=== PATIENT | female | born 1965 | race Caucasian/White ===

== ENCOUNTER 2017-07-30 12:02 | Inpatient (IN) | payer BC ==
[2017-07-30] MEDS ORDERED: ONDANSETRON HCL INJ/PF 4 MG/2 ML SDV IV ONE (12:19)
[2017-07-30] MEDS ORDERED: FENTANYL CITRATE INJ/PF 100 MCG/2 ML AMPUL IV ONE ×3 (12:19→18:22)
[2017-07-30] MEDS ORDERED: PIPERACILLIN/TAZOBACTAM 3.375 GM VIAL IV ONE ×2 (12:19→22:30)
--- NOTE | 2017-07-30 12:20 | ER Document Report ---
ED Medical Screen (RME) - General Chief Complaint: Abdominal Pain Stated Complaint: FEVER, SIDE PAIN Time Seen by Provider: 07/30/17 12:15 Notes: 52-year-old female PMH diverticulitis with subsequent remote sigmoid colectomy, recently treated with Cipro and Flagyl for an episode diagnosed 2 weeks ago back here today with complaints of left lower quadrant abdominal pain mostly but also diffusely that started again today. She had finished a course of antibiotics and the symptoms disappeared for almost a week before returning this morning. Her surgeon is Dr. Mendez who informed her to return if she had a fever. She did have a fever of 100.5 Fahrenheit this morning. TRAVEL OUTSIDE OF THE [place] IN LAST 30 DAYS: No - Related Data Allergies/Adverse Reactions: codeine [Codeine] Allergy (Mild, Verified 07/30/17 12:19) Nausea morphine [Morphine] Adverse Reaction (Intermediate, Verified 07/30/17 12:19) Nausea levofloxacin [From Levaquin] Adverse Reaction (Verified 07/30/17 12:19) JOINT PAIN Past Medical History - Social History Chew tobacco use (# tins/day): No Frequency of alcohol use: Rare Drug Abuse: None - Past Medical History Cardiac Medical History: Denies: Hx Coronary Artery Disease, Hx Heart Attack, Hx Hypertension Pulmonary Medical History: Denies: Hx Asthma, Hx Bronchitis, Hx COPD, Hx Pneumonia Neurological Medical History: Denies: Hx Cerebrovascular Accident, Hx Seizures Renal/ Medical History: Reports: Hx Kidney Stones. Denies: Hx Peritoneal Dialysis Malignancy Medical History: Reports: Hx Breast Cancer GI Medical History: Reports: Hx Diverticulitis, Hx Hiatal Hernia. Denies: Hx Hepatitis, Hx Ulcer Musculoskeltal Medical History: Denies Hx Arthritis Skin Medical History: Reports Hx Cellulitis Infectious Medical History: Denies: Hx Hepatitis Past Surgical History: Reports: Hx Abdominal Surgery - colectomy, Hx Bowel Surgery - colectomy, Hx Cholecystectomy, Hx Hysterectomy, Hx Mastectomy - BILAT. Denies: Hx Open Heart Surgery, Hx Pacemaker - Immunizations Immunizations up to date: Yes Hx Diphtheria, Pertussis, Tetanus Vaccination: Yes Physical Exam - Vital signs Vitals: Temp Pulse Resp BP Pulse Ox 97.9 F 87 16 127/83 H 99 07/30/17 12:08 07/30/17 12:08 07/30/17 12:08 07/30/17 12:08 07/30/17 12:08 Course - Vital Signs Vital signs: Temp Pulse Resp BP Pulse Ox 97.9 F 87 16 127/83 H 99 07/30/17 12:08 07/30/17 12:08 07/30/17 12:08 07/30/17 12:08 07/30/17 12:08
[2017-07-30 13:17] LABS: ABSOLUTE EOSINOPHILS # (AUTO) 0.1 10^3/uL (0.0-0.6); ABSOLUTE LYMPHOCYTES (AUTO) 1.8 10^3/uL (0.5-4.7); ABSOLUTE MONOCYTES (AUTO) 0.9 10^3/uL (0.1-1.4); ABSOLUTE NEUT (AUTO) 7.6 10^3/uL (1.7-8.2); APPEARANCE,URINE CLEAR; BASOPHILS % (AUTO) 0.3 % (0-2); BILIRUBIN,URINE NEGATIVE (NEGATIVE); COLOR,URINE YELLOW; EOSINOPHILS % (AUTO) 1.2 % (0-6); GLUCOSE, URINE NEGATIVE (NEGATIVE); HEMATOCRIT 43.3 % (36.0-47.0); HEMOGLOBIN 15.2 g/dL (12.0-15.5); KETONES,URINE NEGATIVE (NEGATIVE); LEUKOCYTE ESTERASE,URINE NEGATIVE (NEGATIVE); LYMPHOCYTES % (AUTO) 17.4 % (13-45); MEAN CORPUSCULAR HEMOGLOBIN 31.8 pg (27.0-33.4); MEAN CORPUSCULAR HGB CONC 35.2 g/dL (32.0-36.0); MEAN CORPUSCULAR VOLUME 90 fl (80-97); MONOCYTES % (AUTO) 8.6 % (3-13); NITRITE,URINE NEGATIVE (NEGATIVE); PLATELET COUNT 171 10^3/uL (150-450); PROTEIN,URINE NEGATIVE (NEGATIVE); RED CELL DISTRIBUTION WIDTH 13.2 % (11.5-14.0); SEGMENTED NEUTROPHILS % (AUTO) 72.5 % (42-78); TOTAL CELLS COUNTED % (AUTO) 100 %; URINE SPECIFIC GRAVITY 1.021; UROBILINOGEN,URINE NEGATIVE mg/dL (<2.0); WHITE BLOOD COUNT 10.4 10^3/uL (4.0-10.5)
[2017-07-30 13:20] LABS: ALANINE AMINOTRANSFERASE 27 U/L (9-52); ALBUMIN 4.8 g/dL (3.5-5.0); ALKALINE PHOSPHATASE 83 U/L (38-126); ANION GAP 13 (5-19); ASPARTATE AMINO TRANSFERASE 36 U/L (14-36); BILIRUBIN,DIRECT 0.5 mg/dL (0.0-0.4); BILIRUBIN,TOTAL 0.9 mg/dL (0.2-1.3); BLOOD UREA NITROGEN 9 mg/dL (7-20); CALCIUM 10.3 mg/dL (8.4-10.2); CARBON DIOXIDE 26 mmol/L (22-30); CHLORIDE 107 mmol/L (98-107); GLUCOSE 92 mg/dL (75-110); LIPASE 118.9 U/L (23-300); SODIUM 145.5 mmol/L (137-145)
--- NOTE | 2017-07-30 14:03 | ER Document Report ---
ED GI/ - General Chief Complaint: Abdominal Pain Stated Complaint: FEVER, SIDE PAIN Time Seen by Provider: 07/30/17 12:15 Notes: The patient is a 52-year-old female, past medical history previous episodes of diverticulitis with sigmoidectomy, breast cancer, presents with a few hours of worsening left lower quadrant abdominal pain. She was diagnosed with diverticulitis 2 weeks ago and finished Cipro and Flagyl. She was initially feeling better until the pain worsened this morning and it woke her up from sleep. She also had a fever of 100.[address] Patient called Dr. Mendez was told to come to the ER. She denies nausea, vomiting, diarrhea, constipation, rash, flank pain, urinary symptoms or headache. TRAVEL OUTSIDE OF THE [place] IN LAST 30 DAYS: No - Related Data Allergies/Adverse Reactions: codeine [Codeine] Allergy (Mild, Verified 07/30/17 12:19) Nausea morphine [Morphine] Adverse Reaction (Intermediate, Verified 07/30/17 12:19) Nausea levofloxacin [From Levaquin] Adverse Reaction (Verified 07/30/17 12:19) JOINT PAIN Home Medications: Lunesta, zoloft, kathy Past Medical History - General Information source: Patient - Social History Smoking Status: Never Smoker Chew tobacco use (# tins/day): No Frequency of alcohol use: Rare Drug Abuse: None Family History: Reviewed & Not Pertinent Patient has suicidal ideation: No Patient has homicidal ideation: No - Past Medical History Cardiac Medical History: Denies: Hx Coronary Artery Disease, Hx Heart Attack, Hx Hypertension Pulmonary Medical History: Denies: Hx Asthma, Hx Bronchitis, Hx COPD, Hx Pneumonia Neurological Medical History: Denies: Hx Cerebrovascular Accident, Hx Seizures Renal/ Medical History: Reports: Hx Kidney Stones. Denies: Hx Peritoneal Dialysis Malignancy Medical History: Reports: Hx Breast Cancer GI Medical History: Reports: Hx Diverticulitis, Hx Hiatal Hernia. Denies: Hx Hepatitis, Hx Ulcer Musculoskeltal Medical History: Denies Hx Arthritis Skin Medical History: Reports Hx Cellulitis Infectious Medical History: Denies: Hx Hepatitis Past Surgical History: Reports: Hx Abdominal Surgery - colectomy, Hx Bowel Surgery - colectomy, Hx Cholecystectomy, Hx Hysterectomy, Hx Mastectomy - BILAT. Denies: Hx Open Heart Surgery, Hx Pacemaker - Immunizations Immunizations up to date: Yes Hx Diphtheria, Pertussis, Tetanus Vaccination: Yes Review of Systems - Review of Systems Notes: REVIEW OF SYSTEMS: CONSTITUTIONAL: +fevers, -chills EENT: -eye pain, -difficulty swallowing, -nasal congestion CARDIOVASCULAR: -chest pain, -syncope. RESPIRATORY: -cough, -SOB GASTROINTESTINAL: +abdominal pain, -nausea, -vomiting, -diarrhea GENITOURINARY: -dysuria, -hematuria MUSCULOSKELETAL: -back pain, -neck pain SKIN: -rash or skin lesions. HEMATOLOGIC: -easy bruising or bleeding. LYMPHATIC: -swollen, enlarged glands. NEUROLOGICAL: -altered mental status or loss of consciousness, -headache, - neurologic symptoms PSYCHIATRIC: -anxiety, -depression. ALL OTHER SYSTEMS REVIEWED AND NEGATIVE. Physical Exam - Vital signs Vitals: Temp Pulse Resp BP Pulse Ox 97.9 F 87 16 127/83 H 99 07/30/17 12:08 07/30/17 12:08 07/30/17 12:08 07/30/17 12:08 07/30/17 12:08 - Notes Notes: PHYSICAL EXAMINATION: GENERAL: Uncomfortable. HEAD: Atraumatic, normocephalic. EYES: Pupils equal round and reactive to light, extraocular movements intact, sclera anicteric, conjunctiva are normal. ENT: nares patent, oropharynx clear without exudates. Moist mucous membranes. NECK: Normal range of motion, supple without lymphadenopathy LUNGS: Breath sounds clear to auscultation bilaterally and equal. No wheezes rales or rhonchi. HEART: Regular rate and rhythm without murmurs ABDOMEN: Soft, moderate LLQ tenderness, normoactive bowel sounds. +guarding, no rebound. No masses appreciated. EXTREMITIES: Normal range of motion, no pitting or edema. No cyanosis. NEUROLOGICAL: Cranial nerves grossly intact. Normal speech, normal gait. Normal sensory and motor exams. PSYCH: Normal mood, normal affect. SKIN: Warm, Dry, normal turgor, no rashes or lesions noted. Course - Re-evaluation Re-evalutation: Patient with worsening left lower quadrant abdominal pain despite finishing Cipro and Flagyl. Concern for perforation or abscess formation of her diverticulitis. CT abdomen and pelvis does not show any perforation or abscess formation, but it does show acute sigmoid diverticulitis. She failed outpatient therapy and requires admission for IV antibiotics. Spoke to Dr. Mendez and he will admit patient as Inpatient to Surgical floor. - Vital Signs Vital signs: Temp Pulse Resp BP Pulse Ox 97.9 F 87 16 127/83 H 99 07/30/17 12:08 07/30/17 12:08 07/30/17 12:08 07/30/17 12:08 07/30/17 12:08 - Laboratory Result Diagrams: 07/30/17 12:50 07/30/17 12:50 Laboratory results interpreted by me: 07/30/17 12:50 Sodium 145.5 H Calcium 10.3 H Direct Bilirubin 0.5 H - Diagnostic Test Radiology reviewed: Image reviewed, Reports reviewed Radiology results interpreted by me: CT A/P: 1. Findings consistent with acute uncomplicated sigmoid diverticulitis. No abscess or perforation. 2. Right urinary obstruction. Tiny less than 2 mm distal ureteral stone causes moderate -marked hydronephrosis. Discharge - Discharge Clinical Impression: Acute diverticulitis Condition: Stable Disposition: ADMITTED INPATIENT Admitting Provider: Surgicalist Zaria Mendez Unit Admitted: Surgical Floor
--- NOTE | 2017-07-30 16:54 | PDOC H&P ---
History of Present Illness Patient complains of: Abdominal pain History of Present Illness: CHERYL MURDOCK is a 52 year old female Known history of residual diverticulosis disease as evidenced by colonoscopy 2012 Dr. Mendez history of sigmoid colectomy for diverticular disease by Dr. Osorio in early who presents to the emergency department complaining about a 2 week history of abdominal pain and change in her bowel movements, and low-grade fever. She was in [place] 2 weeks ago when the onset occurred, was seen in the emergency department, diagnosed with acute diverticulitis of the left colon, and sent home on p.o. Flagyl and ciprofloxacin. She took all of her medicines as directed, and felt better until yesterday when she developed abdominal pain worse this morning. She has had some nausea but no vomiting. He was seen in the emergency department where she had a CT scan of the abdomen and pelvis with IV and oral contrast which showed findings consistent with left colonic and sigmoid region reticulitis, pericolonic stranding, and probable contained colonic abscess secondary to perforation. He was evaluated by Dr. Mendez and advised admission. Past Medical History Cardiac Medical History: Denies: Coronary Artery Disease, Myocardial Infarction, Hypertension Pulmonary Medical History: Denies: Asthma, Bronchitis, Chronic Obstructive Pulmonary Disease (COPD), Pneumonia Neurological Medical History: Denies: Seizures Malignancy Medical History: Reports: Breast Cancer GI Medical History: Reports: Diverticulitis, Hiatal Hernia Denies: Hepatitis Musculoskeltal Medical History: Denies: Arthritis Hematology: Denies: Anemia, Sickle Cell Disease Past Surgical History Past Surgical History: Reports: Cholecystectomy, Hysterectomy, Mastectomy - BILAT, Other - Sigmoid colectomy open Dr. Osorio early : Last colonoscopy 2011 Dr. Garcia: Amputation, Pacemaker Social History Smoking Status: Never Smoker Frequency of Alcohol Use: Rare Drugs: None Hx Prescription Drug Abuse: No Family History Family History: Reviewed & Not Pertinent Parental Family History Reviewed: Yes Children Family History Reviewed: Yes Sibling(s) Family History Reviewed.: Yes Medication/Allergy Home Medications: Tamoxifen Citrate 20 mg PO DAILY 09/29/11 Venlafaxine HCl [Effexor 75 Mg Tablet] 75 mg PO DAILY 09/29/11 Cephalexin Monohydrate [Keflex 500 mg Capsule] 500 mg PO BID #20 capsule Hydrocodone Bit/Acetaminophen [Vicodin 5-500 mg Tablet] 1 - 2 tab PO ASDIR PRN # 15 tablet 03/19/12 Ciprofloxacin HCl [Cipro 500 mg Tablet] 500 mg PO BID #20 tablet 02/08/14 Metronidazole [Flagyl 250 mg Tablet] 250 mg PO Q8 #25 tablet 02/08/14 Ondansetron [Zofran Odt 4 mg Tablet] 1 - 2 tab PO Q4H PRN #15 tab.rapdis Oxycodone HCl/Acetaminophen [Percocet 5-325 mg Tablet] 1 - 2 tab PO Q4H PRN #15 tablet 02/08/14 Allergies/Adverse Reactions: codeine [Codeine] Allergy (Mild, Verified 07/30/17 12:19) Nausea morphine [Morphine] Adverse Reaction (Intermediate, Verified 07/30/17 12:19) Nausea levofloxacin [From Levaquin] Adverse Reaction (Verified 07/30/17 12:19) JOINT PAIN Review of Systems Constitutional: PRESENT: as per HPI Eyes: ABSENT: visual disturbances Ears: ABSENT: hearing changes Cardiovascular: ABSENT: chest pain, dyspnea on exertion, edema, orthropnea, palpitations Respiratory: ABSENT: cough, hemoptysis Gastrointestinal: PRESENT: as per HPI, other - Patient reports chronically loose stools; she denies constipation Genitourinary: ABSENT: dysuria, hematuria Musculoskeletal: ABSENT: joint swelling Integumentary: ABSENT: rash, wounds Physical Exam Vital Signs: Temp Pulse Resp BP Pulse Ox 97.9 F 87 16 127/83 H 99 07/30/17 12:08 07/30/17 12:08 07/30/17 12:08 07/30/17 12:08 07/30/17 12:08 Intake & Output 07/29/17 07/30/17 07/31/17 06:59 06:59 06:59 Weight 88.1 kg General appearance: PRESENT: no acute distress Head exam: PRESENT: normocephalic Eye exam: PRESENT: EOMI Ear exam: PRESENT: normal external ear exam Mouth exam: PRESENT: dry mucosa Neck exam: PRESENT: full ROM Respiratory exam: PRESENT: clear to auscultation daniel Cardiovascular exam: PRESENT: RRR Pulses: PRESENT: normal carotid pulses, normal radial pulses, normal femoral pulses GI/Abdominal exam: PRESENT: other - Tender right lower quadrant with mild guarding, no rigidity no organomegaly Rectal exam: PRESENT: deferred Extremities exam: PRESENT: full ROM Musculoskeletal exam: PRESENT: full ROM Neurological exam: PRESENT: awake, oriented to person, oriented to place, oriented to time, oriented to situation Psychiatric exam: PRESENT: appropriate affect Results Laboratory Results: 07/30/17 12:50 07/30/17 12:50 07/30/17 07/30/17 07/30/17 12:50 12:50 12:50 WBC 10.4 RBC 4.80 Hgb 15.2 Hct 43.3 MCV 90 MCH 31.8 MCHC 35.2 RDW 13.2 Plt Count 171 Seg Neutrophils % 72.5 Lymphocytes % 17.4 Monocytes % 8.6 Eosinophils % 1.2 Basophils % 0.3 Absolute Neutrophils 7.6 Absolute Lymphocytes 1.8 Absolute Monocytes 0.9 Absolute Eosinophils 0.1 Absolute Basophils 0.0 Sodium 145.5 H Potassium 4.0 Chloride 107 Carbon Dioxide 26 Anion Gap 13 BUN 9 Creatinine 0.58 Est GFR ( Amer) > 60 Est GFR (Non-Af Amer) > 60 Glucose 92 Calcium 10.3 H Total Bilirubin 0.9 AST 36 ALT 27 Alkaline Phosphatase 83 Total Protein 8.0 Albumin 4.8 Lipase 118.9 Urine Color YELLOW Urine Appearance CLEAR Urine pH 5.0 Ur Specific Cameron 1.021 Urine Protein NEGATIVE Urine Glucose (UA) NEGATIVE Urine Ketones NEGATIVE Urine Blood NEGATIVE Urine Nitrite NEGATIVE Ur Leukocyte Esterase NEGATIVE Urine WBC (Auto) 1 Urine RBC (Auto) 1 Assessment & Plan - Diagnosis (1) Acute diverticulitis of intestine Is this a current diagnosis for this admission?: Yes Plan: Patient has a history of sigmoid colectomy by Dr. Terence Osorio over 10 years ago ; details currently not available; interval colonoscopy by Dr. Mendez 2011 showing normal residual diverticular disease only, now with acute flareup of resumed left colonic diverticulitis, failed outpatient management over the last 2 weeks with persisting pain and the CT scan showing left colonic narrowing, pericolonic stranding, probable contained perforation. Patient is not septic. Recommendations: 1. Admit, IV fluids, IV antibiotics and clear liquids; no immediate indication for exploratory surgery, or drainage procedure at this time 2. Doubt patient will require reoperation at this time; she may require colonoscopy for diagnostic purposes depending upon how her clinical condition plays out. (2) History of breast cancer Is this a current diagnosis for this admission?: Yes Plan: Patient has a history of unilateral breast cancer, status post bilateral mastectomy, with contralateral prophylactic mastectomy, adjuvant chemotherapy with port placement and port removal approximately 10 years ago. No interval recurrence. - Time Time Spent: 50 to 70 Minutes Critical Time spent with patient: 15-24 minutes Medications reviewed and adjusted accordingly: Yes Anticipated discharge: Home Within: within 24 hours - Inpatient Certification Based on my medical assessment, after consideration of the patient's comorbidities, presenting symptoms, or acuity I expect that the services needed warrant INPATIENT care.: Yes I certify that my determination is in accordance with my understanding of Medicare's requirements for reasonable and necessary INPATIENT services [42 CFR 412.3e].: Yes Medical Necessity: Need For IV Fluids, Need for IV Antibiotics
--- NOTE | 2017-07-30 16:58 | RADIOLOGY REPORT (SQ) ---
EXAM DESCRIPTION: CT ABD/PELVIS WITH IV ORAL COMPLETED DATE/TIME: 07/30/2017 4:40 pm REASON FOR STUDY: diverticulitis recently; eval repeat vs abscess COMPARISON: 2014. TECHNIQUE: CT scan of the abdomen and pelvis performed with intravenous and oral contrast using luciano lázaro scanning technique with dynamic intravenous contrast injection. Images reviewed with lung, soft t issue, and bone windows. Reconstructed coronal and sagittal MPR images reviewed. Delayed images for e valuation of the urinary system also acquired. All images stored on PACS. All CT scanners at this facility use dose modulation, iterative reconstruction, and/or weight based d osing when appropriate to reduce radiation dose to as low as reasonably achievable (ALARA). [facility]: Dose Right [facility]: CareDose [facility]: Dose Right [facility]: Teradose 4D [facility]: [employer] CONTRAST TYPE AND DOSE: contrast/concentration: Isovue 370.00 mg/ml; Total Contrast Delivered: 95.0 ml; Total Saline Delivered: 59.1 ml RENAL FUNCTION: GFR > 60. RADIATION DOSE: CT Rad equipment meets quality standard of care and radiation dose reduction techniq ues were employed. CTDIvol: 13.4 - 16.9 mGy. DLP: 1687 mGy-cm.. LIMITATIONS: None. FINDINGS: LOWER CHEST: No significant findings. No nodules or infiltrates. LIVER: Diffusely fatty. SPLEEN: Normal size. No focal lesions. PANCREAS: No masses. No significant calcifications. No adjacent inflammation or peripancreatic fluid collections. Pancreatic duct not dilated. GALLBLADDER: Absent. ADRENAL GLANDS: No significant masses or asymmetry. RIGHT KIDNEY AND URETER: Moderate -marked hydronephrosis. Dilatation of the right ureter proximally. Tiny sub 2 mm calculus in the right hemipelvis appears to lie in the distal ureter. Best demonstra carlos on axial images 71 series 3 and coronal series 601, image 45. Lack of excretion into the right u reter with pooling of contrast in the dilated collecting system and slightly delayed nephrogram. LEFT KIDNEY AND URETER: No solid masses. No significant calcification. No hydronephrosis or hydrouret er. AORTA AND VESSELS: No aneurysm. No dissection. Renal arteries, SMA, celiac without stenosis. RETROPERITONEUM: No retroperitoneal adenopathy, hemorrhage or masses. BOWEL AND PERITONEAL CAVITY: Wall thickening, diverticulosis and hazy pericolonic fat stranding in th e proximal sigmoid. No regional abscess or perforation. No free air. Remaining loops of bowel look normal. APPENDIX: Normal. PELVIS: No significant masses. Normal bladder. No free fluid. ABDOMINAL WALL: No masses. No hernias. BONES: No significant or acute findings. OTHER: No other significant finding. IMPRESSION: 1. Findings consistent with acute uncomplicated sigmoid diverticulitis. No abscess or p erforation. 2. Right urinary obstruction. Tiny less than 2 mm distal ureteral stone causes moderate -marked hydronephrosis. TECHNICAL DOCUMENTATION: JOB ID: [id number] Quality ID # [id number]: Final reports with documentation of one or more dose reduction techniques (e.g., Au tomated exposure control, adjustment of the mA and/or kV according to patient size, use of iterative reconstruction technique) 2010 [employer]- All Rights Reserved Reading location - IP/workstation name: [email or web address]
[2017-07-30] MEDS ORDERED: PIPERACILLIN/TAZOBACTAM 3.375 GM VIAL IV PRN (16:59)
[2017-07-30] MEDS ORDERED: KETOROLAC TROMETHAMINE INJ/PF 30 MG/1 ML SDV IV ONE (18:21)
[2017-07-30] MEDS: RINGERS SOLUTION,LACTATED 1,000 ML IV PRN (18:57)
[2017-07-30] MEDS ORDERED: KETOROLAC TROMETHAMINE 10 MG TABLET PO PRN (23:18)
[2017-07-30] MEDS: PIPERACILLIN SODIUM/TAZOBACTAM 3.375 GM in NORMAL SALINE 100 ML IV SCH (23:32)
[2017-07-30] MEDS: KETOROLAC TROMETHAMINE INJ/PF 30 MG/1 ML SDV IV PRN (23:32)
[2017-07-31] MEDS ORDERED: PIPERACILLIN/TAZOBACTAM 3.375 GM VIAL IV ONE (05:14)
[2017-07-31] MEDS: PIPERACILLIN SODIUM/TAZOBACTAM 3.375 GM in NORMAL SALINE 100 ML IV SCH ×3 (05:35→23:08)
[2017-07-31] MEDS: KETOROLAC TROMETHAMINE INJ/PF 30 MG/1 ML SDV IV PRN ×3 (05:35→21:59)
[2017-07-31] MEDS: RINGERS SOLUTION,LACTATED 1,000 ML IV PRN (05:36)
--- NOTE | 2017-07-31 07:33 | Physician Advisory Note ---
Physician Advisor ProgressNote .: Pursuant to the plan for [facility], I have reviewed the medical record for this patient. Physician Advisor Statement: Please consider documenting, if you agree: 1. "Rt hydronephrosis due to <2mm distal ureteral stone" - & state whether likely acute or chronic (CT) 2. Clarify the suggestion of a discrepancy in the record between H&P (stating there is acute diverticulitis w/pericolonic abscess), & CT report (not mentioning this but stating Rt hydronephrosis due to distal ureteral stone). 3. "Acute hypernatremia, likely due to " [intravascular volume depletion?] 4. Medical necessity: each day, the reason(s) pt not safe for d/c to home that day. Status: Pt w/prior sigmoid colectomy due to diverticular disease, recent acute diverticulitis tx'd outpt with initial improvement & then relapse of sx/failure of outpt tx per surgeon.
--- NOTE | 2017-07-31 09:59 | PDOC PROGRESS REPORT ---
Subjective Progress Note for:: 07/31/17 Subjective:: Feels okay. Still having left lower quadrant abdominal pain but slightly improved. Patient denies any right-sided abdominal pain and denies any right flank pain. She has had kidney stones in the past and she states that her current left-sided pain is nothing like her kidney stone pains in the past. Reason For Visit: ACUTE DIVERTICULITIS WITH PERICOLONIC ABSCESS Physical Exam Vital Signs: Temp Pulse Resp BP Pulse Ox 97.8 F 69 16 97/53 L 99 07/31/17 07:02 07/31/17 07:04 07/31/17 07:02 07/31/17 07:04 07/31/17 07:02 Intake & Output 07/30/17 07/31/17 08/01/17 06:59 06:59 06:59 Intake Total 320 Output Total 300 Balance 20 Weight 89.7 kg General appearance: PRESENT: no acute distress, cooperative Respiratory exam: PRESENT: clear to auscultation daniel Cardiovascular exam: PRESENT: RRR GI/Abdominal exam: PRESENT: other - Soft, nondistended, moderate left lower quadrant abdominal tenderness without peritoneal signs. Extremities exam: PRESENT: other - No swelling and no tenderness. Results Impressions: Abdomen/Pelvis CT 07/30/17 12:15 IMPRESSION: 1. Findings consistent with acute uncomplicated sigmoid diverticulitis. No abscess or perforation. 2. Right urinary obstruction. Tiny less than 2 mm distal ureteral stone causes moderate -marked hydronephrosis. Assessment & Plan - Diagnosis (1) Acute diverticulitis of intestine Is this a current diagnosis for this admission?: Yes Plan: We will continue IV antibiotics. Patient was noted with a possible right ureteral stone on CT scan however patient is asymptomatic in regards to this stone. She has a history of right ureteral lithiasis in the past. I will have her follow-up with her urologist when she is discharged in regards to the current CT scan findings. Unfortunately we do not have a urologist on staff at our hospital for at least the next 7 days. We will keep the patient on clear liquids for today and when she has improvement of her pain and tenderness, will advance her diet.
[2017-07-31] MEDS: MORPHINE SULFATE 10 MG/ML INJ IV PRN ×2 (12:00→18:33)
[2017-07-31] MEDS: ONDANSETRON HCL INJ/PF 4 MG/2 ML SDV IV PRN ×2 (12:00→18:33)
--- NOTE | 2017-07-31 15:03 | Physician Advisory Note ---
Physician Advisor ProgressNote .: Pursuant to the plan for [facility], I have reviewed the medical record for this patient. Physician Advisor Statement: Status: Excellent clarification of pt's ongoing need for hospitalization, etc. - continues w/ LLQ pain & tenderness, not ok to advance beyond clears po yet, needs continued IV abx & IVF with close monitoring (especially given impression of possible pericolonic abscess from perforation). Failed outpt tx, w/ continued sx even after 24hrs of tx in hospital. Needed Fentanyl IV 2x yesterday for pain control, now needing prn IV morphine/Zofran added for adequate pain control today - not improving as quickly as hoped/expected. Appropriate for transition to Inpatient status. Please [facility] to [facility], if you agree: 1. "Acute diverticulitis with suspected pericolonic abscess due to intestinal perforation of sigmoid [or ___] colon, a clinical dx given continued pain & tenderness despite outpt tx" 2. "Rt hydronephrosis, [?acute or chronic, or unknown chronicity] with small distal ureteral stone, asymptomatic" 3. "Medical necessity: pt continues with acute abd pain & tenderness until ___ _, then was able to have diet advanced ..." Thanks! CK
[2017-07-31] MEDS ORDERED: MORPHINE SULFATE 10 MG/ML INJ ONE (18:21)
[2017-08-01] MEDS: HYDROMORPHONE HCL INJ/PF 2 MG/ML AMPULE IV PRN ×6 (00:33→20:59)
[2017-08-01] MEDS: PIPERACILLIN SODIUM/TAZOBACTAM 3.375 GM in NORMAL SALINE 100 ML IV SCH ×4 (05:07→23:44)
[2017-08-01] MEDS: KETOROLAC TROMETHAMINE INJ/PF 30 MG/1 ML SDV IV PRN (05:08)
[2017-08-01 07:16] LABS: ABSOLUTE EOSINOPHILS # (AUTO) 0.2 10^3/uL (0.0-0.6); ABSOLUTE LYMPHOCYTES (AUTO) 1.3 10^3/uL (0.5-4.7); ABSOLUTE MONOCYTES (AUTO) 0.4 10^3/uL (0.1-1.4); ABSOLUTE NEUT (AUTO) 1.8 10^3/uL (1.7-8.2); BASOPHILS % (AUTO) 1.2 % (0-2); EOSINOPHILS % (AUTO) 6.3 % (0-6); HEMATOCRIT 33.7 % (36.0-47.0); LYMPHOCYTES % (AUTO) 33.7 % (13-45); MEAN CORPUSCULAR HEMOGLOBIN 32.3 pg (27.0-33.4); MEAN CORPUSCULAR HGB CONC 35.8 g/dL (32.0-36.0); MEAN CORPUSCULAR VOLUME 90 fl (80-97); MONOCYTES % (AUTO) 11.2 % (3-13); PLATELET COUNT 110 10^3/uL (150-450); RED BLOOD COUNT 3.73 10^6/uL (3.72-5.28); RED CELL DISTRIBUTION WIDTH 12.9 % (11.5-14.0); SEGMENTED NEUTROPHILS % (AUTO) 47.6 % (42-78); TOTAL CELLS COUNTED % (AUTO) 100 %; WHITE BLOOD COUNT 3.8 10^3/uL (4.0-10.5)
[2017-08-01 07:57] LABS: HEMOGLOBIN 12.1 g/dL (12.0-15.5)
[2017-08-01] MEDS: ONDANSETRON HCL INJ/PF 4 MG/2 ML SDV IV PRN ×2 (08:13→16:47)
--- NOTE | 2017-08-01 09:52 | PDOC PROGRESS REPORT ---
Subjective Progress Note for:: 08/01/17 Subjective:: Pain in left lower quadrant not improved. Patient now having bloody bowel movements. Reason For Visit: ACUTE DIVERTICULITIS WITH PERICOLONIC ABSCESS Physical Exam Vital Signs: Temp Pulse Resp BP Pulse Ox 97.9 F 67 16 106/62 96 08/01/17 04:54 08/01/17 04:54 08/01/17 04:54 08/01/17 04:54 08/01/17 04:54 Intake & Output 07/31/17 08/01/17 08/02/17 06:59 06:59 06:59 Intake Total 320 440 Output Total 300 40 Balance 20 400 Weight 89.7 kg 91.1 kg General appearance: PRESENT: no acute distress, cooperative Respiratory exam: PRESENT: clear to auscultation daniel Cardiovascular exam: PRESENT: RRR GI/Abdominal exam: PRESENT: other - Soft, nondistended, focal tenderness to palpation in the left lower quadrant but without peritoneal signs Extremities exam: PRESENT: other - No swelling and no tenderness Results Laboratory Results: 08/01/17 06:20 08/01/17 06:20 WBC 3.8 L RBC 3.73 Hgb 12.1 D Hct 33.7 L MCV 90 MCH 32.3 MCHC 35.8 RDW 12.9 Plt Count 110 L Seg Neutrophils % 47.6 Lymphocytes % 33.7 Monocytes % 11.2 Eosinophils % 6.3 H Basophils % 1.2 Absolute Neutrophils 1.8 Absolute Lymphocytes 1.3 Absolute Monocytes 0.4 Absolute Eosinophils 0.2 Absolute Basophils 0.0 Impressions: Abdomen/Pelvis CT 07/30/17 12:15 IMPRESSION: 1. Findings consistent with acute uncomplicated sigmoid diverticulitis. No abscess or perforation. 2. Right urinary obstruction. Tiny less than 2 mm distal ureteral stone causes moderate -marked hydronephrosis. Assessment & Plan - Diagnosis (1) Acute diverticulitis of intestine Is this a current diagnosis for this admission?: Yes Plan: Not responding with current measures. Now with blood per rectum. Will make the patient n.p.o. to place her at bowel rest. Will change antibiotics to Levaquin and Flagyl. I have discussed with the patient the option of surgery versus continued conservative management with the above changes. Since patient does not have peritoneal signs and her vital signs are stable I think we can try bowel rest and change of antibiotics. Reluctant to do an endoscopic procedure in the face of diverticulitis. However if her bleeding worsens will plan a flexible sigmoidoscopy.
[2017-08-01] MEDS ORDERED: DEXTROSE 5%-1/2 NORMAL SALINE 1,000 ML with POTASSIUM CHLORIDE 30 MEQ IV PRN ×2 (09:55)
--- NOTE | 2017-08-01 10:23 | PDOC PROGRESS REPORT ---
Subjective Reason For Visit: ACUTE DIVERTICULITIS WITH PERICOLONIC ABSCESS Physical Exam Vital Signs: Temp Pulse Resp BP Pulse Ox 98.0 F 62 17 115/66 96 08/01/17 08:28 08/01/17 08:28 08/01/17 08:28 08/01/17 08:28 08/01/17 04:54 Intake & Output 07/31/17 08/01/17 08/02/17 06:59 06:59 06:59 Intake Total 320 440 Output Total 300 40 100 Balance 20 400 -100 Weight 89.7 kg 91.1 kg Results Laboratory Results: 08/01/17 06:20 08/01/17 06:20 WBC 3.8 L RBC 3.73 Hgb 12.1 D Hct 33.7 L MCV 90 MCH 32.3 MCHC 35.8 RDW 12.9 Plt Count 110 L Seg Neutrophils % 47.6 Lymphocytes % 33.7 Monocytes % 11.2 Eosinophils % 6.3 H Basophils % 1.2 Absolute Neutrophils 1.8 Absolute Lymphocytes 1.3 Absolute Monocytes 0.4 Absolute Eosinophils 0.2 Absolute Basophils 0.0 Impressions: Abdomen/Pelvis CT 07/30/17 12:15 IMPRESSION: 1. Findings consistent with acute uncomplicated sigmoid diverticulitis. No abscess or perforation. 2. Right urinary obstruction. Tiny less than 2 mm distal ureteral stone causes moderate -marked hydronephrosis. Assessment & Plan - Diagnosis (1) Acute diverticulitis of intestine Is this a current diagnosis for this admission?: Yes Plan: Patient with significant reaction to Levaquin in the past. Therefore will continue with her current antibiotic and will add Flagyl.
[2017-08-01] MEDS ORDERED: POTASSI CL 30 MEQ/D5-1/2NS 1L 1000 ML IV PRN (11:32)
[2017-08-01] MEDS: METRONIDAZOLE 500 MG/NS RTU 100 ML IV SCH ×2 (13:02→18:04)
[2017-08-01] MEDS: POTASSI CL 30 MEQ/D5-1/2NS 1L 1000 ML IV PRN (16:48)
[2017-08-01] MEDS ORDERED: PROMETHAZINE HCL INJ 25 MG/1 ML VIAL IV ONE (22:00)
[2017-08-02] MEDS: METRONIDAZOLE 500 MG/NS RTU 100 ML IV SCH ×4 (00:34→17:51)
[2017-08-02] MEDS: PIPERACILLIN SODIUM/TAZOBACTAM 3.375 GM in NORMAL SALINE 100 ML IV SCH ×4 (05:28→23:16)
[2017-08-02] MEDS: POTASSI CL 30 MEQ/D5-1/2NS 1L 1000 ML IV PRN ×2 (05:29→23:17)
[2017-08-02] MEDS: KETOROLAC TROMETHAMINE INJ/PF 30 MG/1 ML SDV IV PRN (05:29)
[2017-08-02] MEDS: ONDANSETRON HCL INJ/PF 4 MG/2 ML SDV IV PRN ×3 (05:29→17:51)
[2017-08-02 07:04] LABS: ABSOLUTE EOSINOPHILS # (AUTO) 0.2 10^3/uL (0.0-0.6); ABSOLUTE LYMPHOCYTES (AUTO) 0.9 10^3/uL (0.5-4.7); ABSOLUTE MONOCYTES (AUTO) 0.4 10^3/uL (0.1-1.4); ABSOLUTE NEUT (AUTO) 2.5 10^3/uL (1.7-8.2); BASOPHILS % (AUTO) 0.9 % (0-2); EOSINOPHILS % (AUTO) 4.6 % (0-6); HEMATOCRIT 34.6 % (36.0-47.0); HEMOGLOBIN 12.4 g/dL (12.0-15.5); LYMPHOCYTES % (AUTO) 21.6 % (13-45); MEAN CORPUSCULAR HGB CONC 35.8 g/dL (32.0-36.0); MEAN CORPUSCULAR VOLUME 90 fl (80-97); MONOCYTES % (AUTO) 10.9 % (3-13); PLATELET COUNT 122 10^3/uL (150-450); RED BLOOD COUNT 3.87 10^6/uL (3.72-5.28); RED CELL DISTRIBUTION WIDTH 13.1 % (11.5-14.0); TOTAL CELLS COUNTED % (AUTO) 100 %; WHITE BLOOD COUNT 4.1 10^3/uL (4.0-10.5)
[2017-08-02 07:27] LABS: ANION GAP 11 (5-19); BLOOD UREA NITROGEN 8 mg/dL (7-20); CARBON DIOXIDE 27 mmol/L (22-30); CHLORIDE 108 mmol/L (98-107); GLUCOSE 100 mg/dL (75-110); POTASSIUM 4.1 mmol/L (3.6-5.0); SODIUM 146.4 mmol/L (137-145)
[2017-08-02 11:13] LABS: CREATINE KINASE MB < 0.22 ng/mL (<4.55); TROPONIN I < 0.012 ng/mL
--- NOTE | 2017-08-02 13:03 | EKG REPORT ---
SEVERITY:- BORDERLINE ECG - SINUS RHYTHM BORDERLINE R WAVE PROGRESSION, ANTERIOR LEADS : Confirmed by: Serge Keith MD 02-Aug-2017 13:02:57
--- NOTE | 2017-08-02 14:44 | RADIOLOGY REPORT (SQ) ---
EXAM DESCRIPTION: CT ABD/PELVIS WITH IV ORAL COMPLETED DATE/TIME: 08/02/2017 2:19 pm REASON FOR STUDY: abdominal pain, diverticulitis COMPARISON: CT abdomen pelvis 07/30/2017, 01/28/2015, 02/08/2014 TECHNIQUE: CT scan of the abdomen and pelvis performed using helical scanning technique with dynamic intravenous contrast injection. Patient drank oral contrast. Images reviewed with lung, soft tissue , and bone windows. Reconstructed coronal and sagittal MPR images reviewed. Delayed images for evalua tion of the urinary system also acquired. All images stored on PACS. All CT scanners at this facility use dose modulation, iterative reconstruction, and/or weight based d osing when appropriate to reduce radiation dose to as low as reasonably achievable (ALARA). [facility]: Dose Right [facility]: CareDose [facility]: Dose Right [facility]: Teradose 4D [facility]: Flyfit CONTRAST TYPE AND DOSE: contrast/concentration: Isovue mg/ml; Total Contrast Delivered: 97.0 ml; To emma Saline Delivered: 72.0 ml RENAL FUNCTION: Creatinine 0.75 RADIATION DOSE: CT Rad equipment meets quality standard of care and radiation dose reduction techniq ues were employed. CTDIvol: 17.4 - 18.3 mGy. DLP: 1820 mGy-cm.. LIMITATIONS: None. FINDINGS: A 2 mm stone is present in the distal right ureter on axial image 67, sagittal image 43, a nd coronal image 63. This causes mild right hydronephrosis and hydroureter. No right renal cysts or masses. No other ureteral calculi. On axial images 60 through 67, there is mild inflammation in the pericolic fat along the distal desce nding colon. Very mild diverticulitis is suspected. LOWER CHEST: Moderate hiatal hernia. Bilateral breast implants. LIVER: Normal size. No masses. No dilated ducts. SPLEEN: Normal size. No focal lesions. PANCREAS: No masses. No significant calcifications. No adjacent inflammation or peripancreatic fluid collections. Pancreatic duct not dilated. GALLBLADDER: Surgically absent ADRENAL GLANDS: No significant masses or asymmetry. RIGHT KIDNEY AND URETER: As above LEFT KIDNEY AND URETER: No solid masses. No significant calcifications. No hydronephrosis or hydr oureter. AORTA AND VESSELS: No aneurysm. No dissection. Renal arteries, SMA, celiac without stenosis. RETROPERITONEUM: No retroperitoneal adenopathy, hemorrhage or masses. BOWEL AND PERITONEAL CAVITY: Patient drank oral contrast. No CT evidence of bowel obstruction or alexia e intraperitoneal air or fluid. Question mild pericolic inflammation along the distal descending col on in an area of diverticulosis. Surgical ej at the rectosigmoid junction from old sigmoid nino ctomy. APPENDIX: Not identified, patient states post appendectomy PELVIS: No mass. No free fluid. Normal bladder. Post hysterectomy ABDOMINAL WALL: No masses. No hernias. BONES: Degenerative disc changes at L2-3 OTHER: No other significant finding. IMPRESSION: 2 mm distal right ureteral stone causing mild right hydronephrosis and hydroureter. Thi s is similar compared to 07/30/2017 CT exam Stranding in the fat along the distal descending colon, suggestive of mild diverticulitis. No absces s. No free air. This is similar compared to 07/30/2017 CT exam TECHNICAL DOCUMENTATION: JOB ID: [id number] Quality ID # [id number]: Final reports with documentation of one or more dose reduction techniques (e.g., Au tomated exposure control, adjustment of the mA and/or kV according to patient size, use of iterative reconstruction technique) 2010 [employer]- All Rights Reserved Reading location - IP/workstation name: [email or web address]
--- NOTE | 2017-08-02 15:24 | PDOC PROGRESS REPORT ---
Subjective Progress Note for:: 08/02/17 Subjective:: This is a 52-year-old female admitted with diverticulitis. She reports that her pain is improving, however she feels very anxious about her medical condition. Today, she reports tightness in her chest (she has experienced this before, and has recently undergone a negative cardiac workup). She does suffer from anxiety at home. She reports nausea and some vomiting last night. She denies shortness of breath, dizziness. She also reports intermittent bright red rectal bleeding and malaise. Reason For Visit: ACUTE DIVERTICULITIS Physical Exam Vital Signs: Temp Pulse Resp BP Pulse Ox 97.8 F 58 L 14 133/68 H 99 08/02/17 11:18 08/02/17 11:18 08/02/17 11:18 08/02/17 11:18 08/02/17 11:18 Intake & Output 08/01/17 08/02/17 08/03/17 06:59 06:59 06:59 Output Total 500 Balance -500 Weight 90 kg General appearance: PRESENT: cooperative, mild distress - complains of chest tightness and appears anxious Head exam: PRESENT: atraumatic, normocephalic Eye exam: PRESENT: EOMI, PERRLA. ABSENT: conjunctival injection, scleral icterus Mouth exam: PRESENT: moist, neck supple Teeth exam: ABSENT: poor dentation Neck exam: PRESENT: full ROM. ABSENT: lymphadenopathy, thyromegaly, tracheal deviation Respiratory exam: PRESENT: clear to auscultation daniel, symmetrical. ABSENT: accessory muscle use, chest wall tenderness, rales, rhonchi, stridor Cardiovascular exam: PRESENT: RRR Vascular exam: PRESENT: normal capillary refill. ABSENT: pallor GI/Abdominal exam: PRESENT: soft, tenderness - Mild to moderate left lower quadrant tenderness., other - No signs of peritonitis.. ABSENT: ascites, distended, firm, guarding, rebound Rectal exam: PRESENT: deferred Extremities exam: ABSENT: clubbing, +1 edema Musculoskeletal exam: PRESENT: ambulatory, normal inspection Neurological exam: PRESENT: alert, awake, oriented to person, oriented to place , oriented to time, oriented to situation, CN II-XII grossly intact. ABSENT: motor sensory deficit Psychiatric exam: PRESENT: anxious. ABSENT: depressed Skin exam: PRESENT: normal color. ABSENT: cyanosis, erythema, jaundice Results Laboratory Results: 08/02/17 06:40 08/02/17 06:40 08/02/17 08/02/17 06:40 06:40 WBC 4.1 RBC 3.87 Hgb 12.4 Hct 34.6 L MCV 90 MCH 32.0 MCHC 35.8 RDW 13.1 Plt Count 122 L Seg Neutrophils % 62.0 Lymphocytes % 21.6 Monocytes % 10.9 Eosinophils % 4.6 Basophils % 0.9 Absolute Neutrophils 2.5 Absolute Lymphocytes 0.9 Absolute Monocytes 0.4 Absolute Eosinophils 0.2 Absolute Basophils 0.0 Sodium 146.4 H Potassium 4.1 Chloride 108 H Carbon Dioxide 27 Anion Gap 11 BUN 8 Creatinine 0.75 Est GFR ( Amer) > 60 Est GFR (Non-Af Amer) > 60 Glucose 100 Calcium 9.0 08/02/17 08/02/17 10:16 10:16 Creatine Kinase 37 CK-MB (CK-2) < 0.22 Troponin I < 0.012 Impressions: Abdomen/Pelvis CT 08/02/17 00:00 IMPRESSION: 2 mm distal right ureteral stone causing mild right hydronephrosis and hydroureter. This is similar compared to 07/30/2017 CT exam Stranding in the fat along the distal descending colon, suggestive of mild diverticulitis. No abscess. No free air. This is similar compared to 2017 CT exam Assessment & Plan - Diagnosis (1) Acute diverticulitis of intestine Is this a current diagnosis for this admission?: Yes Plan: This is a 52-year-old female with diverticulitis. Last CT scan failed to show any abscesses or perforation. The patient reports that she "does not feel well today ". Her exam is improving. She has minimal tenderness. She is afebrile. I will repeat her CT scan today to document improvement of her diverticulitis. Continue antibiotics. Continue bowel rest. - Plan Summary Plan Summary: Patient also complained of chest tightness today. She does suffer from anxiety , which may be the cause. I have checked EKG and cardiac enzymes. Her EKG failed to show any obvious ST elevations or depressions. Her initial set of cardiac enzymes were completely normal. Her chest pain improved spontaneously.
[2017-08-02 16:31] LABS: CREATINE KINASE MB 0.27 ng/mL (<4.55)
[2017-08-02 16:39] LABS: TROPONIN I < 0.012 ng/mL
[2017-08-02 22:15] LABS: TROPONIN I < 0.012 ng/mL
[2017-08-03] MEDS: METRONIDAZOLE 500 MG/NS RTU 100 ML IV SCH (01:02)
[2017-08-03] MEDS: PIPERACILLIN SODIUM/TAZOBACTAM 3.375 GM in NORMAL SALINE 100 ML IV SCH (06:23)
[2017-08-03 06:42] LABS: ABSOLUTE EOSINOPHILS # (AUTO) 0.1 10^3/uL (0.0-0.6); ABSOLUTE MONOCYTES (AUTO) 0.5 10^3/uL (0.1-1.4); ABSOLUTE NEUT (AUTO) 3.1 10^3/uL (1.7-8.2); BASOPHILS % (AUTO) 0.6 % (0-2); EOSINOPHILS % (AUTO) 2.8 % (0-6); HEMATOCRIT 33.3 % (36.0-47.0); LYMPHOCYTES % (AUTO) 21.6 % (13-45); MEAN CORPUSCULAR HEMOGLOBIN 32.3 pg (27.0-33.4); MEAN CORPUSCULAR VOLUME 90 fl (80-97); MONOCYTES % (AUTO) 9.6 % (3-13); PLATELET COUNT 128 10^3/uL (150-450); RED CELL DISTRIBUTION WIDTH 12.9 % (11.5-14.0); SEGMENTED NEUTROPHILS % (AUTO) 65.4 % (42-78); TOTAL CELLS COUNTED % (AUTO) 100 %; WHITE BLOOD COUNT 4.8 10^3/uL (4.0-10.5)
[2017-08-03 06:53] LABS: ANION GAP 9 (5-19); BLOOD UREA NITROGEN 4 mg/dL (7-20); CALCIUM 9.3 mg/dL (8.4-10.2); CARBON DIOXIDE 25 mmol/L (22-30); CHLORIDE 111 mmol/L (98-107); GLUCOSE 125 mg/dL (75-110); POTASSIUM 4.2 mmol/L (3.6-5.0); SODIUM 145.3 mmol/L (137-145)
[2017-08-03] MEDS ORDERED: METRONIDAZOLE 500 MG/NS RTU 100 ML IV SCH (09:00)
--- NOTE | 2017-08-03 09:42 | PDOC PROGRESS REPORT ---
Subjective Progress Note for:: 08/03/17 Subjective:: Feels much better. Minimal abdominal discomfort. Having bowel movements. Tolerating a diet well. Reason For Visit: ACUTE DIVERTICULITIS Physical Exam Vital Signs: Temp Pulse Resp BP Pulse Ox 98.4 F 64 16 128/75 H 100 08/03/17 07:43 08/03/17 07:43 08/03/17 07:43 08/03/17 07:43 08/03/17 07:43 Intake & Output 08/02/17 08/03/17 08/04/17 06:59 06:59 06:59 Intake Total 1620 Output Total 500 Balance -500 1620 Weight 90 kg 90.9 kg General appearance: PRESENT: no acute distress, cooperative Respiratory exam: PRESENT: clear to auscultation daniel Cardiovascular exam: PRESENT: RRR GI/Abdominal exam: PRESENT: other - Soft, nondistended, very mild left lower quadrant abdominal tenderness without peritoneal signs. Much improved. Extremities exam: PRESENT: other - No swelling and no edema. Neurological exam: PRESENT: alert, awake Psychiatric exam: PRESENT: appropriate affect Results Laboratory Results: 08/03/17 05:48 08/03/17 05:48 08/03/17 08/03/17 05:48 05:48 WBC 4.8 RBC 3.70 L Hgb 12.0 Hct 33.3 L MCV 90 MCH 32.3 MCHC 36.0 RDW 12.9 Plt Count 128 L Seg Neutrophils % 65.4 Lymphocytes % 21.6 Monocytes % 9.6 Eosinophils % 2.8 Basophils % 0.6 Absolute Neutrophils 3.1 Absolute Lymphocytes 1.0 Absolute Monocytes 0.5 Absolute Eosinophils 0.1 Absolute Basophils 0.0 Sodium 145.3 H Potassium 4.2 Chloride 111 H Carbon Dioxide 25 Anion Gap 9 BUN 4 L Creatinine 0.67 Est GFR ( Amer) > 60 Est GFR (Non-Af Amer) > 60 Glucose 125 H Calcium 9.3 08/02/17 08/02/17 08/02/17 10:16 10:16 15:55 Creatine Kinase 37 47 CK-MB (CK-2) < 0.22 Troponin I < 0.012 08/02/17 08/02/17 08/02/17 15:55 21:40 21:40 Creatine Kinase 51 CK-MB (CK-2) 0.27 0.30 Troponin I < 0.012 < 0.012 Impressions: Abdomen/Pelvis CT 08/02/17 00:00 IMPRESSION: 2 mm distal right ureteral stone causing mild right hydronephrosis and hydroureter. This is similar compared to 07/30/2017 CT exam Stranding in the fat along the distal descending colon, suggestive of mild diverticulitis. No abscess. No free air. This is similar compared to 2017 CT exam Assessment & Plan - Diagnosis (1) Acute diverticulitis of intestine Is this a current diagnosis for this admission?: Yes Plan: Doing well with conservative measures. Will discharge patient home on p.o. antibiotics for 10 days. Follow-up next week. She will need a colonoscopy as an outpatient when she has recovered from her diverticulitis. She will also follow-up with her urologist concerning her right ureteral stone. Patient had a metallic taste secondary to Flagyl but I think she needs this medication to treat her diverticulitis as an outpatient. I will write her a prescription for Zofran as needed.
--- NOTE | 2017-08-03 09:56 | DISCHARGE SUMMARY E ---
Discharge Summary NAME: CHERYL MURDOCK : 1965 AGE: 52Y ADMITTED: 08/01/2017 DISCHARGED: 08/03/2017 DISCHARGE DIAGNOSES: 1. Diverticulitis. 2. Right ureteral stone. HOSPITAL COURSE: The patient was treated conservatively for her diverticulitis with IV antibiotics. Initially, she did not have response. Flagyl was added to the regimen, and the following day she seemed to have finally good improvement with marked improvement of her abdominal pain. She was tolerating a diet well at the time of discharge. She had a couple episodes of bloody bowel movement during her hospital stay which resolved by the time of discharge. Her hematocrit had decreased from admission of 43 down to 33, and it remained stable for the last 3 days. The patient was afebrile. Vital signs were stable. She did have an episode of anxiety. Cardiac workup was negative. This anxiety attack had resolved by the time of discharge. She was feeling quite well at the time of discharge. The patient was finally discharged to home in good. She will follow up at [facility] next week. She will require a colonoscopy when she has had resolution of this episode of diverticulitis. She is also advised to follow up with her urologist as an outpatient in regards to the right ureteral stone. She has a history of kidney stones in the past, but she is not symptomatic in regards to this stone at this time. There is no urologist available at [place]; therefore, I think she would be better served with urology followup with her urologist. DIET: She may follow a regular diet. MEDICATIONS: She may resume her home medications. Additional medications are: 1. Augmentin 875 mg 1 p.o. b.i.d. 2. Flagyl 500 mg 1 p.o. t.i.d. Both of these antibiotics were written for 10 days. 3. Additional medications are Zofran 4 mg p.o. every 4 hours p.r.n. nausea. 4. Colace 100 mg 1 p.o. b.i.d. 5. Patient did not want any narcotics for pain. DICTATING PHYSICIAN: MAZIN RODGERS M.D. [id number] PHY#: [id number] [id number] JOB#: [id number] ACCT: [id number] cc:[employer], >
[2017-08-03 09:58] VITALS: BP 105/69
== END 2017-08-03 10:37 | disposition home or self-care (01) | DRG 392 ==
LOC: ER 12:02 → INTOOBSV 17:46 → EH 17:46 → 2N 19:55 → OBSVTOIN 08-01 08:34
PROVIDERS: ADMIT Surgery; ATTEND Surgery
DX: K57.32 Diverticulitis of large intestine without perforation or abscess without bleeding (principal); N20.1 Calculus of ureter; K92.1 Melena; F41.9 Anxiety disorder, unspecified; R07.89 Other chest pain; K44.9 Diaphragmatic hernia without obstruction or gangrene; Z90.49 Acquired absence of other specified parts of digestive tract; Z85.3 Personal history of malignant neoplasm of breast; Z90.13 Acquired absence of bilateral breasts and nipples; Z88.6 Allergy status to analgesic agent; Z88.1 Allergy status to other antibiotic agents; Z92.21 Personal history of antineoplastic chemotherapy; Z87.442 Personal history of urinary calculi
CPT/HCPCS: 36415; 74177; 80048; 80053; 81001; 82550; 82553; 83690; 84484; 85025; 87040; 93005; 93010; 96365; 96375; 96376; 99285; G0378; J1170; J1885; J2270; J2405; J2543; J2550; J3010; J3480; J7120

== ENCOUNTER 2017-09-20 09:59 | Day surgery (SDC) | payer BC ==
[2017-09-18 12:53] LABS: HEMATOCRIT 42.7 % (36.0-47.0); HEMOGLOBIN 15.2 g/dL (12.0-15.5); MEAN CORPUSCULAR HEMOGLOBIN 32.5 pg (27.0-33.4); MEAN CORPUSCULAR HGB CONC 35.7 g/dL (32.0-36.0); MEAN CORPUSCULAR VOLUME 91 fl (80-97); PLATELET COUNT 173 10^3/uL (150-450); RED BLOOD COUNT 4.69 10^6/uL (3.72-5.28); RED CELL DISTRIBUTION WIDTH 13.3 % (11.5-14.0); WHITE BLOOD COUNT 4.9 10^3/uL (4.0-10.5)
[~2017-09-20 09:59] MED LIST: ACETAMINOPHEN 325 MG TABLET PO PRN; LACTATED RINGERS 1000 ML IV PRN; LIDOCAINE 0.5% INJ-PF (5 MG/ML) 50 ML SDV SUBCUT PRN
[2017-09-20] MEDS ORDERED: MIDAZOLAM 2 MG/2 ML INJ ONE (11:26)
[2017-09-20] MEDS ORDERED: PROPOFOL INJ 200 MG/20 ML VIAL IV ONE (11:27)
[2017-09-20] MEDS ORDERED: ONDANSETRON HCL INJ/PF 4 MG/2 ML SDV IV PRN (11:53)
--- NOTE | 2017-09-20 12:06 | Discharge Summary ---
Discharge Summary (SDC) - Discharge Final Diagnosis: Rare diverticulosis otherwise normal colonoscopy; history of sigmoid colectomy Date of Surgery: 09/20/17 Discharge Date: 09/20/17 Condition: Good Treatment or Instructions: [address] [id number] POST ENDOSCOPY DISCHARGE INSTRUCTIONS 1. Diet: Start clear liquids that a regular diet as tolerated. 2. Resume all preoperative medications. All oral anticoagulants and aspirins can be resumed 24 hours after procedure. 3. If a polypectomy was performed some bleeding per rectum may occur. This should stop within 3 days. If not, please contact the office. 4. If you had a colonoscopy you may experience some bloating and delayed return of normal bowel function for several days, your regular bowel movement pattern should resume within a week. 5. Please contact [facility] at to make an appointment with Dr. Mendez for 1 to 3 weeks following procedure. 6. If you have any questions or concerns regarding your care,treatment plan or follow up, please contact our office. 7. Per clinical guidelines we recommend you undergo a repeat colonoscopy in 8 years. Referrals: WHIT VALDEZ PA-C [Primary Care Provider] - Discharge Activity: Activity As Tolerated Home Care Assistance: None Needed Report the Following to Your Physician Immediately: Shortness of Breath, Increase in Pain
--- NOTE | 2017-09-20 12:08 | Operative Report ---
Operative Report DATE OF SURGERY: 09/20/17 PREOPERATIVE DIAGNOSIS: History of diverticulosis; status post sigmoid colectomy POSTOPERATIVE DIAGNOSIS: Normal colon; rare left colonic diverticulosis OPERATION: Total colonoscopy to cecum with photodocumentation SURGEON: LEFTY CELESTE ANESTHESIA: LMAC TISSUE REMOVED OR ALTERED: None COMPLICATIONS: None ESTIMATED BLOOD LOSS: None INTRAOPERATIVE FINDINGS: See below PROCEDURE: Obtaining informed consent the patient was taken from the preoperative holding area to the main endoscopy suite where monitoring devices were attached to the patient. Plan and surgical timeout were conducted The patient was placed in the left lateral decubitus position with knees to chest. A perianal examination was performed. There was no visible or palpable anorectal pathology. Sphincter tone was felt to be normal. The flexible adult colonoscope was advanced through the anal rectal canal, all the way to the cecum. Visualization of the cecum was achieved and the ileocecal valve, the appendiceal orifice and transillumination of the anterior abdominal wall. This was an excellent study on the well-prepped bowel. The colonoscope was withdrawn slowly and methodically checked and the mucosa carefully. There was no anatomic evidence of stricture, or previous sigmoid colon anastomotic scarring etc. There was no evidence of tumor, stricture, bleeding or polyp. There were rare diverticulosis, no greater than 5 the scope was slowly withdrawn through the anal rectal canal. Complete visualization of the rectum was achieved with photodocumentation. The scope was withdrawn to the patient's anus. The patient tolerated the procedure well and was taken to the recovery area in stable condition. Per surveillance guidelines, patient be appropriate candidate for follow-up colonoscopy in 8 years.
[2017-09-20 15:02] VITALS: BP 118/73
== END 2017-09-20 14:00 | disposition home or self-care (01) ==
LOC: OROUT 09:59
PROVIDERS: ATTEND Surgery
DX: Z12.11 Encounter for screening for malignant neoplasm of colon (principal); K57.30 Diverticulosis of large intestine without perforation or abscess without bleeding; Z87.19 Personal history of other diseases of the digestive system; Z90.49 Acquired absence of other specified parts of digestive tract; F32.9 Major depressive disorder, single episode, unspecified; Z88.5 Allergy status to narcotic agent; Z88.1 Allergy status to other antibiotic agents; Z79.899 Other long term (current) drug therapy; Z85.3 Personal history of malignant neoplasm of breast
CPT/HCPCS: 45378; 36415; 85027; J2704; 811; J2250

== ENCOUNTER 2017-11-26 21:51 | Emergency (ER) | payer BC ==
[2017-11-26] MEDS ORDERED: NORMAL SALINE 1000 ML 1,000 ML IV ONE (22:22)
[2017-11-26] MEDS ORDERED: KETOROLAC TROMETHAMINE INJ/PF 30 MG/1 ML SDV IV ONE (22:22)
[2017-11-26 23:13] LABS: APPEARANCE,URINE CLEAR; BILIRUBIN,URINE NEGATIVE (NEGATIVE); COLOR,URINE YELLOW; GLUCOSE, URINE NEGATIVE (NEGATIVE); KETONES,URINE NEGATIVE (NEGATIVE); LEUKOCYTE ESTERASE,URINE NEGATIVE (NEGATIVE); NITRITE,URINE NEGATIVE (NEGATIVE); PROTEIN,URINE NEGATIVE (NEGATIVE); URINE SPECIFIC GRAVITY 1.025
[2017-11-27] MEDS: FENTANYL CITRATE INJ/PF 100 MCG/2 ML AMPUL IV PRN ×3 (00:16→02:45)
--- NOTE | 2017-11-27 00:24 | ER Document Report ---
ED General - General Chief Complaint: Abdominal Pain Stated Complaint: ABDOMINAL PAIN Time Seen by Provider: 11/26/17 22:22 Notes: Patient is a 52-year-old female with a past medical history of recurrent diverticulitis, prior sigmoid colectomy secondary to diverticulitis with associated perforation who presents with 2 days of progressively worsening left lower abdominal pain. He describes this as a dull, throbbing, aching pain to the area. The pain is worsened by palpation of the area. She has not tried anything to improve the pain. She states that this feels exactly the same as when she has had diverticulitis in the past most recently July 2017. She denies any associated fever or constitutional symptoms. She notes that she has had associated nausea. She has not yet contacted her general doctor regarding today's concerns. TRAVEL OUTSIDE OF THE [place] IN LAST 30 DAYS: No - Related Data Allergies/Adverse Reactions: codeine [Codeine] Allergy (Mild, Verified 09/18/17 11:14) Nausea morphine [Morphine] Allergy (Mild, Verified 09/18/17 11:14) Nausea levofloxacin [From Levaquin] Adverse Reaction (Verified 09/18/17 11:14) JOINT PAIN Past Medical History - General Information source: Patient - Social History Smoking Status: Never Smoker Frequency of alcohol use: None Drug Abuse: None Lives with: Spouse/Significant other Family History: Reviewed & Not Pertinent - Past Medical History Cardiac Medical History: Denies: Hx Congestive Heart Failure, Hx Coronary Artery Disease, Hx Heart Attack, Hx Hypertension Pulmonary Medical History: Denies: Hx Asthma, Hx Bronchitis, Hx COPD, Hx Pneumonia, Hx Tuberculosis Neurological Medical History: Denies: Hx Cerebrovascular Accident, Hx Seizures Renal/ Medical History: Reports: Hx Kidney Stones. Denies: Hx End Stage Renal Disease, Hx Peritoneal Dialysis Malignancy Medical History: Reports: Hx Breast Cancer GI Medical History: Reports: Hx Diverticulitis, Hx Hiatal Hernia. Denies: Hx Cirrhosis, Hx Gastroesophageal Reflux Disease, Hx Hepatitis, Hx Ulcer Musculoskeletal Medical History: Denies Hx Arthritis, Denies Hx Multiple Sclerosis Skin Medical History: Reports Hx Cellulitis Psychiatric Medical History: Reports: Hx Depression Denies: Hx Bipolar Disorder, Hx Schizophrenia Infectious Medical History: Denies: Hx Hepatitis Past Surgical History: Reports: Hx Abdominal Surgery - colectomy, Hx Bowel Surgery - colectomy, Hx Cholecystectomy, Hx Hysterectomy, Hx Mastectomy - BILAT , Other - Sigmoid colectomy open Dr. Osorio early 1999s: Last colonoscopy 2011 Dr[address] Garcia: Hx Open Heart Surgery, Hx Pacemaker - Immunizations Immunizations up to date: Yes Hx Diphtheria, Pertussis, Tetanus Vaccination: Yes Review of Systems - Review of Systems Notes: Constitutional: Negative for fever. HENT: Negative for sore throat. Eyes: Negative for visual changes. Cardiovascular: Negative for chest pain. Respiratory: Negative for shortness of breath. Gastrointestinal: Positive for abdominal pain and nausea Genitourinary: Negative for dysuria. Musculoskeletal: Negative for back pain. Skin: Negative for rash. Neurological: Negative for headaches, weakness or numbness. 10 point ROS negative except as marked above and in HPI. Physical Exam - Vital signs Interpretation: Normal Notes: PHYSICAL EXAMINATION: GENERAL: Well-appearing, well-nourished and in no acute distress. HEAD: Atraumatic, normocephalic. EYES: Pupils equal round and reactive to light, extraocular movements intact, sclera anicteric, conjunctiva are normal. ENT: nares patent, oropharynx clear without exudates. Moist mucous membranes. NECK: Normal range of motion, supple without lymphadenopathy LUNGS: Breath sounds clear to auscultation bilaterally and equal. No wheezes rales or rhonchi. HEART: Regular rate and rhythm without murmurs ABDOMEN: Soft, left lower quadrant pain on palpation but no other localized areas of abdominal tenderness, normoactive bowel sounds. No guarding, no rebound. No masses appreciated. EXTREMITIES: Normal range of motion, no pitting or edema. No cyanosis. NEUROLOGICAL: No focal neurological deficits. Moves all extremities spontaneously and on command. PSYCH: Normal mood, normal affect. SKIN: Warm, Dry, normal turgor, no rashes or lesions noted. Course - Re-evaluation Re-evalutation: 11/27/17 01:04 Patient presents with 48 hours of progressive worsening left lower quadrant abdominal pain with associated nausea but no vomiting. No fever or constitutional symptoms. The patient has a history of recurrent diverticulitis , has had a sigmoid colectomy in the past secondary to diverticulitis. Also was hospitalized several months ago for a microperforation in the setting of diverticuli this. Initial vitals within acceptable limits. Patient was difficult IV access so I did place a left external jugular vein IV. Will proceed with labs, CT of the pelvis, pain control and reassess 11/27/17 02:29 CT abdomen pelvis does show diverticulitis but no evidence of perforation or abscess. Labs unremarkable. Patient's pain is improved. She is appropriate for outpatient oral antibiotics. At this time will discharge with return precautions and follow-up recommendations. Verbal discharge instructions given a the bedside and opportunity for questions given. Medication warnings reviewed. Patient is in agreement with this plan and has verbalized understanding of return precautions and the need for primary care follow-up in the next 24-72 hours. - Laboratory Result Diagrams: 11/27/17 00:09 11/27/17 01:42 Laboratory results interpreted by me: 11/26/17 11/27/17 22:12 01:42 Potassium 3.4 L Chloride 111 H Glucose 74 L Calcium 8.3 L Total Protein 6.0 L Albumin 3.4 L Urine Urobilinogen 2.0 H - Diagnostic Test Radiology reviewed: Reports reviewed Discharge - Discharge Clinical Impression: Acute diverticulitis of intestine Condition: Good Disposition: HOME, SELF-CARE Additional Instructions: You were seen today for focal pain in your left lower quadrant. Your labs, exam , and imaging suggest a diagnosis of diverticulitis. This is an inflammation of a part of your colon. You are being started on antibiotics to treat this infection and inflammation. Please take all of them as directed and complete them even if your symptoms resolve. Please follow-up with your primary care physician within the next 48 hours. Return to the emergency department immediately if you develop worsening pain, persistent vomiting, began having bloody stools, develop a fever of greater than 101F, or have any other symptoms that are concerning to you. Prescriptions: Ciprofloxacin HCl [Cipro 500 mg Tablet] 500 mg PO BID #20 tablet Metronidazole [Flagyl 500 mg Tablet] 500 mg PO Q6H #40 tablet Referrals: LEFTY CELESTE MD [Primary Care Provider] - Follow up as needed
[2017-11-27 00:26] LABS: HEMATOCRIT 39.2 % (36.0-47.0); HEMOGLOBIN 13.9 g/dL (12.0-15.5); MEAN CORPUSCULAR HEMOGLOBIN 32.3 pg (27.0-33.4); MEAN CORPUSCULAR HGB CONC 35.4 g/dL (32.0-36.0); MEAN CORPUSCULAR VOLUME 91 fl (80-97); PLATELET COUNT 154 10^3/uL (150-450); RED BLOOD COUNT 4.29 10^6/uL (3.72-5.28); RED CELL DISTRIBUTION WIDTH 12.8 % (11.5-14.0); WHITE BLOOD COUNT 5.9 10^3/uL (4.0-10.5)
[2017-11-27 01:09] LABS: ABSOLUTE LYMPHOCYTES# (MANUAL) 2.2 10^3/uL (0.5-4.7); ABSOLUTE MONOCYTES # (MANUAL) 0.4 10^3/uL (0.1-1.4); ABSOLUTE NEUTROPHILS# (MANUAL) 3.1 10^3/uL (1.7-8.2); BASOPHILS % (MANUAL) 0 % (0-2); EOSINOPHILS % (MANUAL) 4 % (0-6); LYMPHOCYTES % (MANUAL) 35 % (13-45); MONOCYTES % (MANUAL) 7 % (3-13); SEGMENTED NEUTROPHILS % (MAN) 52 % (42-78); TOTAL CELLS COUNTED 100
[2017-11-27 01:12] LABS: PLATELET COMMENT ADEQUATE; POIKILOCYTOSIS SLIGHT; TEAR DROP CELLS SLIGHT
[2017-11-27 02:13] LABS: ALANINE AMINOTRANSFERASE 26 U/L (9-52); ALBUMIN 3.4 g/dL (3.5-5.0); ALKALINE PHOSPHATASE 49 U/L (38-126); ANION GAP 10 (5-19); ASPARTATE AMINO TRANSFERASE 20 U/L (14-36); BILIRUBIN,DIRECT 0.2 mg/dL (0.0-0.4); BILIRUBIN,TOTAL 0.8 mg/dL (0.2-1.3); BLOOD UREA NITROGEN 16 mg/dL (7-20); CALCIUM 8.3 mg/dL (8.4-10.2); CARBON DIOXIDE 22 mmol/L (22-30); CHLORIDE 111 mmol/L (98-107); GLUCOSE 74 mg/dL (75-110); LIPASE 167.7 U/L (23-300); POTASSIUM 3.4 mmol/L (3.6-5.0); SODIUM 142.8 mmol/L (137-145)
--- NOTE | 2017-11-27 02:15 | RADIOLOGY REPORT (SQ) ---
EXAM DESCRIPTION: CT ABDOMEN PELVIS WITH IV CONTRAST COMPLETED DATE/TME: 11/27/2017 00:04 CLINICAL HISTORY: 52 years Female, llq pain, eval diverticulitis Comparison: August 02, 2017. Technique: IV contrast. Coronal and sagittal reformat. This exam was performed according to our departmental dose-optimization program, which includes automated exposure control, adjustment of the mA and/or kV according to patient size and/or use of iterative reconstruction technique. [facility]: Dose Right [facility]: CareDose [facility]: Dose Right [facility]: Teradose 4D [facility]: RealGravity LIMITATIONS: None Findings: Mild diverticulitis pattern includes a minimally inflamed diverticulum at the junction of the left colon and proximal sigmoid at the left paracentral pelvis. No free fluid. No abscess. Splenomegaly index of 608. Moderate L2-L3 disc desiccation. No ascites. Cholecystectomy clips, bilateral mammary prostheses. Mild hepatic steatosis. Appendix not discerned, consistent with reported history of appendectomy. Inferior thorax, liver, gallbladder, pancreas, spleen, adrenals, renal system, gastrointestinal tract, pelvic organs, lymphatics, vasculature, and musculoskeleton appear otherwise unremarkable. IMPRESSION: 1. Mild colonic diverticulitis. 2. Splenomegaly index of 608.
[2017-11-27] MEDS ORDERED: METRONIDAZOLE 500 MG TABLET PO ONE (02:31)
[2017-11-27] MEDS ORDERED: ONDANSETRON ODT 4 MG TAB (6 TAB/ER DISP) PO PRN (02:31)
[2017-11-27] MEDS ORDERED: CIPROFLOXACIN HCL 500 MG TABLET PO ONE (02:31)
[2017-11-27] MEDS ORDERED: HYDROCODONE/ACETAMINOPHEN 5-325 MG (6 TAB/ER DISP) PO PRN (02:31)
[2017-11-27 03:39] VITALS: BP 138/79
== END 2017-11-27 03:01 | disposition home or self-care (01) ==
LOC: ER 21:51
DX: K57.92 Diverticulitis of intestine, part unspecified, without perforation or abscess without bleeding (principal); R10.9 Unspecified abdominal pain; Z88.6 Allergy status to analgesic agent; Z90.710 Acquired absence of both cervix and uterus; Z90.49 Acquired absence of other specified parts of digestive tract
CPT/HCPCS: 99284; 96361; 96374; 96375; 36415; 83690; 85025; 80053; 81001; 74177; J3010; J1885; J7030

== ENCOUNTER 2018-10-05 13:29 | Emergency (ER) | payer BC ==
--- NOTE | 2018-10-05 14:04 | ER Document Report ---
ED Medical Screen (RME) - General Chief Complaint: Abdominal Pain Stated Complaint: ABDOMINAL PAIN Time Seen by Provider: 10/05/18 13:59 Primary Care Provider: LEFTY CELESTE MD [Primary Care Provider] - Follow up as needed Mode of Arrival: Ambulatory Information source: Patient Notes: 53-year-old female presented to ED for lower left abdominal pain with nausea and vomiting blood in her stools. She states the vomiting started on Monday the limits came to the emergency room was because of blood in his stool started today. She has a history of diverticulitis multiple times. She states she has had part of her colon removed due to the diverticulitis. She became concerned when she saw the blood in her stool. Patient is alert and oriented respirations regular and unlabored speaking in full sentences walks with even steady gait. I have greeted and performed a rapid initial assessment of this patient. A comprehensive ED assessment and evaluation of the patient, analysis of test results and completion of medical decision making process will be conducted by an additional ED providers. Dictation of this chart was performed using voice recognition software; therefore, there may be some unintended grammatical errors. TRAVEL OUTSIDE OF THE [place] IN LAST 30 DAYS: No - Related Data Allergies/Adverse Reactions: codeine [Codeine] Allergy (Mild, Verified 10/05/18 13:30) Nausea morphine [Morphine] Allergy (Mild, Verified 10/05/18 13:30) Nausea levofloxacin [From Levaquin] Adverse Reaction (Verified 10/05/18 13:30) JOINT PAIN Past Medical History - Social History Chew tobacco use (# tins/day): No Frequency of alcohol use: None Drug Abuse: None - Past Medical History Cardiac Medical History: Denies: Hx Congestive Heart Failure, Hx Coronary Artery Disease, Hx Heart Attack, Hx Hypertension Pulmonary Medical History: Denies: Hx Asthma, Hx Bronchitis, Hx COPD, Hx Pneumonia, Hx Tuberculosis Neurological Medical History: Denies: Hx Cerebrovascular Accident, Hx Seizures Renal/ Medical History: Reports: Hx Kidney Stones. Denies: Hx End Stage Renal Disease, Hx Peritoneal Dialysis Malignancy Medical History: Reports: Hx Breast Cancer GI Medical History: Reports: Hx Diverticulitis, Hx Hiatal Hernia. Denies: Hx Cirrhosis, Hx Gastroesophageal Reflux Disease, Hx Hepatitis, Hx Ulcer Musculoskeltal Medical History: Denies Hx Arthritis, Denies Hx Multiple Sclero sis Skin Medical History: Reports Hx Cellulitis Psychiatric Medical History: Reports: Hx Depression Denies: Hx Bipolar Disorder, Hx Schizophrenia Infectious Medical History: Denies: Hx Hepatitis Past Surgical History: Reports: Hx Abdominal Surgery - colectomy, Hx Bowel Surgery - colectomy, Hx Cholecystectomy, Hx Hysterectomy, Hx Mastectomy - BILAT, Other - Sigmoid colectomy open Dr. Osorio early 1999s: Last colonoscopy 2011 Denies: Hx Open Heart Surgery, Hx Pacemaker - Immunizations Immunizations up to date: Yes Hx Diphtheria, Pertussis, Tetanus Vaccination: Yes History of Influenza Vaccine for 01/2017 - 06/2017 Season: No Physical Exam - Vital signs Vitals: Temp Pulse Resp BP Pulse Ox 98.6 F 76 16 115/65 99 10/05/18 13:35 10/05/18 13:35 10/05/18 13:35 10/05/18 13:35 10/05/18 13:35 Course - Vital Signs Vital signs: Temp Pulse Resp BP Pulse Ox 98.6 F 76 16 115/65 99 10/05/18 13:35 10/05/18 13:35 10/05/18 13:35 10/05/18 13:35 10/05/18 13:35 Doctor's Discharge - Discharge Referrals: LEFTY CELESTE MD [Primary Care Provider] - Follow up as needed
[2018-10-05] MEDS ORDERED: NORMAL SALINE 1000 ML 1,000 ML IV ONE (14:05)
[2018-10-05] MEDS ORDERED: ONDANSETRON HCL INJ/PF 4 MG/2 ML SDV IV ONE (14:05)
[2018-10-05] MEDS ORDERED: KETOROLAC TROMETHAMINE INJ/PF 30 MG/1 ML SDV IV ONE (14:05)
[2018-10-05 16:18] LABS: ABSOLUTE EOSINOPHILS # (AUTO) 0.1 10^3/uL (0.0-0.6); ABSOLUTE LYMPHOCYTES (AUTO) 1.5 10^3/uL (0.5-4.7); ABSOLUTE MONOCYTES (AUTO) 0.5 10^3/uL (0.1-1.4); BASOPHILS % (AUTO) 0.8 % (0-2); EOSINOPHILS % (AUTO) 2.1 % (0-6); HEMATOCRIT 39.7 % (36.0-47.0); HEMOGLOBIN 13.9 g/dL (12.0-15.5); LYMPHOCYTES % (AUTO) 24.7 % (13-45); MEAN CORPUSCULAR HEMOGLOBIN 31.8 pg (27.0-33.4); MEAN CORPUSCULAR HGB CONC 35.1 g/dL (32.0-36.0); MEAN CORPUSCULAR VOLUME 91 fl (80-97); MONOCYTES % (AUTO) 8.3 % (3-13); PLATELET COUNT 150 10^3/uL (150-450); RED BLOOD COUNT 4.38 10^6/uL (3.72-5.28); RED CELL DISTRIBUTION WIDTH 13.1 % (11.5-14.0); SEGMENTED NEUTROPHILS % (AUTO) 64.1 % (42-78); TOTAL CELLS COUNTED % (AUTO) 100 %; WHITE BLOOD COUNT 6.2 10^3/uL (4.0-10.5)
[2018-10-05 16:33] LABS: ALANINE AMINOTRANSFERASE 29 U/L (9-52); ALBUMIN 4.9 g/dL (3.5-5.0); ALKALINE PHOSPHATASE 68 U/L (38-126); ANION GAP 8 (5-19); ASPARTATE AMINO TRANSFERASE 22 U/L (14-36); BILIRUBIN,DIRECT 0.2 mg/dL (0.0-0.4); BILIRUBIN,TOTAL 0.6 mg/dL (0.2-1.3); BLOOD UREA NITROGEN 12 mg/dL (7-20); CALCIUM 10.1 mg/dL (8.4-10.2); CARBON DIOXIDE 30 mmol/L (22-30); CHLORIDE 105 mmol/L (98-107); GLUCOSE 80 mg/dL (75-110); POTASSIUM 4.8 mmol/L (3.6-5.0); SODIUM 142.5 mmol/L (137-145); TOTAL PROTEIN 7.7 g/dL (6.3-8.2)
[2018-10-05 16:37] LABS: APPEARANCE,URINE TURBID; BILIRUBIN,URINE NEGATIVE (NEGATIVE); COLOR,URINE YELLOW; GLUCOSE, URINE NEGATIVE (NEGATIVE); KETONES,URINE NEGATIVE (NEGATIVE); LEUKOCYTE ESTERASE,URINE NEGATIVE (NEGATIVE); NITRITE,URINE NEGATIVE (NEGATIVE); PROTEIN,URINE NEGATIVE (NEGATIVE); URINE SPECIFIC GRAVITY 1.026; UROBILINOGEN,URINE NEGATIVE mg/dL (<2.0)
--- NOTE | 2018-10-05 17:31 | ER Document Report ---
ED General - General Chief Complaint: Abdominal Pain Stated Complaint: ABDOMINAL PAIN Time Seen by Provider: 10/05/18 13:59 Primary Care Provider: LEFTY CELESTE MD [ACTIVE STAFF] - Follow up as needed Mode of Arrival: Ambulatory Information source: Patient TRAVEL OUTSIDE OF THE [place] IN LAST 30 DAYS: No - HPI Patient complains to provider of: Left lower quadrant pain, vomiting, blood in stool Onset: Other - 2 days ago Onset/Duration: Sudden Quality of pain: Sharp Severity: Severe Pain Level: 4 Associated symptoms: denies: Chills, Fever Exacerbated by: Denies Relieved by: Denies Similar symptoms previously: Yes Recently seen / treated by doctor: No Notes: 53-year-old female coming in today with 2 days of left lower abdominal pain with vomiting and some blood in the toilet bowl. No fevers or chills. History of diverticulitis multiple times in the past. Feels the same. Has had lots of CT scans in the past. - Related Data Allergies/Adverse Reactions: codeine [Codeine] Allergy (Mild, Verified 10/05/18 13:30) Nausea morphine [Morphine] Allergy (Mild, Verified 10/05/18 13:30) Nausea levofloxacin [From Levaquin] Adverse Reaction (Verified 10/05/18 13:30) JOINT PAIN Past Medical History - General Information source: Patient - Social History Smoking Status: Unknown if Ever Smoked Chew tobacco use (# tins/day): No Frequency of alcohol use: None Drug Abuse: None Family History: Reviewed & Not Pertinent Patient has suicidal ideation: No Patient has homicidal ideation: No - Past Medical History Cardiac Medical History: Denies: Hx Congestive Heart Failure, Hx Coronary Artery Disease, Hx Heart Attack, Hx Hypertension Pulmonary Medical History: Denies: Hx Asthma, Hx Bronchitis, Hx COPD, Hx Pneumonia, Hx Tuberculosis Neurological Medical History: Denies: Hx Cerebrovascular Accident, Hx Seizures Renal/ Medical History: Reports: Hx Kidney Stones. Denies: Hx End Stage Renal Disease, Hx Peritoneal Dialysis Malignancy Medical History: Reports: Hx Breast Cancer GI Medical History: Reports: Hx Diverticulitis, Hx Hiatal Hernia. Denies: Hx Cirrhosis, Hx Gastroesophageal Reflux Disease, Hx Hepatitis, Hx Ulcer Musculoskeletal Medical History: Denies Hx Arthritis, Denies Hx Multiple Sclerosis Skin Medical History: Reports Hx Cellulitis Psychiatric Medical History: Reports: Hx Depression Denies: Hx Bipolar Disorder, Hx Schizophrenia Infectious Medical History: Denies: Hx Hepatitis Past Surgical History: Reports: Hx Abdominal Surgery - colectomy, Hx Bowel Surgery - colectomy, Hx Cholecystectomy, Hx Hysterectomy, Hx Mastectomy - BILAT, Other - Sigmoid colectomy open Dr. Osorio early : Last colonoscopy [address] Dr[address] Byrdies: Hx Open Heart Surgery, Hx Pacemaker - Immunizations Immunizations up to date: Yes Hx Diphtheria, Pertussis, Tetanus Vaccination: Yes Review of Systems - Review of Systems Notes: Constitutional: No fevers. No chills. EENT: No eye redness. No eye pain. No ear pain. No sore throat. Cardiovascular: No chest pain. No palpitations. Respiratory: No cough. No shortness of breath. No respiratory distress. Gastrointestinal: Positive for left lower quadrant abdominal pain, nausea, and vomiting. Negative for diarrhea Genitourinary: Atraumatic. No lesions. No pain. No discharge. Musculoskeletal: Atraumatic. No swelling. No deformities. Skin: No rash or lesions. Lymphatic: No swollen lymph nodes. Neurologic: No headache. No syncope. Psychiatric: No suicidal or homicidal ideation. Physical Exam - Vital signs Vitals: Temp Pulse Resp BP Pulse Ox 98.6 F 76 16 115/65 99 10/05/18 13:35 10/05/18 13:35 10/05/18 13:35 10/05/18 13:35 10/05/18 13:35 - Notes Notes: General: Well-developed, well-nourished. In no acute distress. Non-toxic appearing. Cardiac: Well-perfused. Regular rate and rhythm. No murmurs, rubs, or gallops. Pulmonary: No respiratory distress. No cyanosis. Bilateral lung fiels are clear to auscultation. Abdominal: Tenderness to deep palpation left lower quadrant. No guarding or rebound. No CVA tenderness HEENT: Head is atraumatic. Conjunctivae not reddened. No tearing. PERRL. EOMI. Orbits atraumatic. No periorbital swelling or erythema. Oropharynx is without erythema, swelling, or exudates. Neck: Supple. No adenopathy. No meningismus. Dermatologic: Warm with good turgor. No rash. Atraumatic. Chest: Atraumatic. No chest wall tenderness to palpation. Musculoskeletal: Moves all extremities well. No range of motion deficits. no muscular or joint tenderness. No paraspinal muscle tenderness. no midline spinal tenderness or step-off. Genitourinary: Examination deferred Neurologic: No gross neurologic deficits. Psychiatric: Normal mood. Course - Re-evaluation Re-evalutation: 10/05/18 17:32 Patient has had multiple CT scans in the past. Clinically and historically presenting like diverticulitis. No white count. No fevers. No active vomiting. Will attempt treatment as an outpatient which I think she is a good candidate for. I will do a p.o. challenge now and also give her her first dose of Flagyl and Cipro to make sure that stays down before we can potentially discharge her. - Vital Signs Vital signs: Temp Pulse Resp BP Pulse Ox 98.6 F 76 16 115/65 99 10/05/18 13:35 10/05/18 13:35 10/05/18 13:35 10/05/18 13:35 10/05/18 13:35 - Laboratory Result Diagrams: 10/05/18 16:00 10/05/18 16:00 Discharge - Discharge Clinical Impression: Diverticulitis UTI (urinary tract infection) Qualifiers: Urinary tract infection type: site unspecified Hematuria presence: without hematuria Qualified Code(s): N39.0 - Urinary tract infection, site not specified Condition: Good Disposition: HOME, SELF-CARE Instructions: Urinary Tract Infection ([facility]), Diverticulitis ([facility]) Additional Instructions: We are empirically treating you for diverticulitis because that is how you are symptoms are presenting. Please start observing the diverticulitis diet. Start antibiotics as directed. Pain medication as needed. Nausea medication as needed. As you know, if your vomiting and/or pain gets worse despite medications you need to return to be rechecked and possibly admitted. However if you do improve you need to make sure that you finish your therapy. I would recommend a recheck for both your urinary infection and your diverticulitis with your primary care doctor on Monday. Prescriptions: Hydrocodone/Acetaminophen [Wilson 5-325 mg Tablet] 1 tab PO Q6HP PRN #12 tablet PRN Reason: Ciprofloxacin HCl [Cipro 500 mg Tablet] 500 mg PO BID #20 tablet Metronidazole [Flagyl 500 mg Tablet] 500 mg PO Q8H 10 Days #30 tablet Ondansetron [Zofran Odt 4 mg Tablet] 1 - 2 tab PO Q4H PRN #15 tab.rapdis PRN Reason: For Nausea/Vomiting Referrals: LEFTY CELESTE MD [ACTIVE STAFF] - Follow up as needed
[2018-10-05] MEDS ORDERED: METRONIDAZOLE 500 MG TABLET PO ONE (17:34)
[2018-10-05] MEDS ORDERED: CIPROFLOXACIN HCL 500 MG TABLET PO ONE (17:34)
[2018-10-05 18:46] VITALS: BP 126/66
== END 2018-10-05 18:47 | disposition home or self-care (01) ==
LOC: ER 13:29
DX: K57.92 Diverticulitis of intestine, part unspecified, without perforation or abscess without bleeding (principal); N39.0 Urinary tract infection, site not specified; R10.32 Left lower quadrant pain; R11.10 Vomiting, unspecified; K92.1 Melena; Z88.6 Allergy status to analgesic agent; Z88.3 Allergy status to other anti-infective agents; Z87.442 Personal history of urinary calculi; Z85.3 Personal history of malignant neoplasm of breast; Z90.49 Acquired absence of other specified parts of digestive tract; Z90.710 Acquired absence of both cervix and uterus
CPT/HCPCS: 99284; 36415; 87040; 84703; 85025; 80053; 81001; J1885; J2405; J7030

== ENCOUNTER 2019-11-13 08:28 | Emergency (ER) | payer BC ==
--- NOTE | 2019-11-13 09:58 | RADIOLOGY REPORT (SQ) ---
EXAM DESCRIPTION: CHEST SINGLE VIEW IMAGES COMPLETED DATE/TIME: 11/13/2019 9:49 am REASON FOR STUDY: SOB COMPARISON: 09/11/2012 EXAM PARAMETERS: NUMBER OF VIEWS: One view. TECHNIQUE: Single frontal radiographic view of the chest acquired. RADIATION DOSE: NA LIMITATIONS: None. FINDINGS: LUNGS AND PLEURA: No opacities, masses or pneumothorax. No pleural effusion. MEDIASTINUM AND HILAR STRUCTURES: No masses. Contour normal. HEART AND VASCULAR STRUCTURES: Heart normal in size. Normal vasculature. BONES: No acute findings. HARDWARE: None in the chest. OTHER: No other significant finding. IMPRESSION: NO ACUTE RADIOGRAPHIC FINDING IN THE CHEST. TECHNICAL DOCUMENTATION: JOB ID: [id number] 2010 [email or web address]- All Rights Reserved Reading location - IP/workstation name: [email or web address]
[2019-11-13] MEDS ORDERED: ASPIRIN 81 MG TABLET, CHEWABLE PO ONE (10:04)
--- NOTE | 2019-11-13 10:25 | ER Document Report ---
ED General - General Chief Complaint: Shortness Of Breath Stated Complaint: SHORTNESS OF BREATH,CHEST PAIN Time Seen by Provider: 11/13/19 09:58 Primary Care Provider: LYDIA NICHOLE MD [Primary Care Provider] - Follow up as needed TRAVEL OUTSIDE OF THE [place] IN LAST 30 DAYS: No - HPI Notes: 54-year-old female presents with chest pain. Patient states that yesterday afternoon, after lunch, she was outside in the yard picking up branches. She developed a left-sided chest pain, described as a heaviness and a tightness, pain radiated to her neck and to her left shoulder. She had associated shortness of breath. She went inside and rested, eventually pain subsided. She reports this morning at 7:30 AM she was up and getting ready for work, she just showered, when she experienced episode of chest pain again, similar to yesterday's chest pain. She reports no recent episodes of chest pain. She reports she had a negative stress test in 2014. She denies any history of co ronary artery disease, CHF or lung disease. She reports a family history of heart disease. She denies recent leg swelling, though notes that a few days ago she had some swelling in her left ankle which resolved. She also notes that from the pain she is experiencing a mild headache. Has a previous history of breast cancer, has been in remission for 10 years. - Related Data Allergies/Adverse Reactions: codeine [Codeine] Allergy (Mild, Verified 11/13/19 09:11) Nausea morphine [Morphine] Allergy (Mild, Verified 11/13/19 09:11) Nausea levofloxacin [From Levaquin] Adverse Reaction (Verified 11/13/19 09:11) JOINT PAIN Home Medications: mirapex,. zoloft. microzide Past Medical History - Social History Smoking Status: Never Smoker Chew tobacco use (# tins/day): No Frequency of alcohol use: None Drug Abuse: None Lives with: Family Family History: CAD - Past Medical History Cardiac Medical History: Denies: Hx Congestive Heart Failure, Hx Coronary Artery Disease, Hx Heart Attack, Hx Hypertension Pulmonary Medical History: Denies: Hx Asthma, Hx Bronchitis, Hx COPD, Hx Pneumonia, Hx Tuberculosis Neurological Medical History: Denies: Hx Cerebrovascular Accident, Hx Seizures, Hx Parkinson's Disease Renal/ Medical History: Reports: Hx Kidney Stones. Denies: Hx End Stage Renal Disease, Hx Peritoneal Dialysis Malignancy Medical History: Reports: Hx Breast Cancer GI Medical History: Reports: Hx Diverticulitis, Hx Hiatal Hernia. Denies: Hx Cirrhosis, Hx Gastroesophageal Reflux Disease, Hx Hepatitis, Hx Ulcer Musculoskeletal Medical History: Denies Hx Arthritis, Denies Hx Multiple Sclerosis Skin Medical History: Reports Hx Cellulitis Psychiatric Medical History: Reports: Hx Depression Denies: Hx Bipolar Disorder, Hx Schizophrenia Infectious Medical History: Denies: Hx Hepatitis Past Surgical History: Reports: Hx Abdominal Surgery - colectomy, Hx Bowel Surgery - colectomy, Hx Cholecystectomy, Hx Hysterectomy, Hx Mastectomy - BILAT, Other - Sigmoid colectomy open Dr. Osorio early : Last colonoscopy 2011 Dr.. Garcia: Hx Open Heart Surgery, Hx Pacemaker - Immunizations Immunizations up to date: Yes Hx Diphtheria, Pertussis, Tetanus Vaccination: Yes Review of Systems - Review of Systems Constitutional: denies: Fever EENT: No symptoms reported Cardiovascular: Chest pain Respiratory: Short of breath Gastrointestinal: No symptoms reported Genitourinary: No symptoms reported Musculoskeletal: denies: Muscle pain Skin: No symptoms reported Hematologic/Lymphatic: No symptoms reported Neurological/Psychological: Headaches Physical Exam - Vital signs Vitals: Temp Pulse Resp BP Pulse Ox 97.6 F 86 20 130/71 H 100 11/13/19 08:40 11/13/19 08:40 11/13/19 08:40 11/13/19 08:40 11/13/19 08:40 Interpretation: No: Tachycardic, Hypoxic - General General appearance: Appears well, Alert - HEENT Head: Normocephalic, Atraumatic Eyes: Normal Pupils: PERRL - Respiratory Breath sounds: Normal. No: Rales Chest palpation: No: Tender - Cardiovascular Rhythm: Regular Heart sounds: Normal auscultation Murmur: No Pulses: Normal: Dorsalis pedis Normal capillary refill: Yes - Abdominal Tenderness: Nontender - Extremities General lower extremity: No: Edema - Neurological Neuro grossly intact: Yes Cognition: Normal Orientation: AAOx4 - Psychological Associated symptoms: Anxious Course - Re-evaluation Re-evalutation: 11/13/19 10:36 54-year-old female with no reported past cardiac history here with chest pain. Exertional chest pain which improved with rest, some associated shortness of breath. She does have some T wave inversions on her EKG G along with some depressions. I am highly concerned for ACS, unstable angina versus an STEMI. Cardiac work-up initiated, aspirin given. CHF possible, check BNP. Do not suspect currently has viral syndrome such as COVID attributing to her presentation today. 11/13/19 11:27 Discussed EKG and presentation with Dr. Chase, cardiology. Troponin still pending. Have decided to start heparinization and nitro drip. Will need transfer. Patient updated on plan. 11/13/19 11:57 1200 discussed with [facility], paged placed 11/13/19 12:[address] Gomez, cardiology at [facility]. He has accepted the patient in transfer, appreciate assistance. 11/13/19 12:30 Updated patient on transfer acceptance, states she is feeling okay currently - Vital Signs Vital signs: Temp Pulse Resp BP Pulse Ox 97.6 F 86 18 129/77 H 97 11/13/19 08:40 11/13/19 08:40 11/13/19 12:21 11/13/19 12:21 11/13/19 12:21 - Laboratory Result Diagrams: 11/13/19 10:35 11/13/19 10:35 Laboratory results interpreted by me: 11/13/19 10:35 NT-Pro-B Natriuret Pep 463 H Initial troponin negative, however concerning story Mild elevation BNP - Diagnostic Test Radiology reviewed: Image reviewed, Reports reviewed - EKG Interpretation by Me Additional EKG results interpreted by me: 11/13/19 10:23 EKG interpretation by me NSR with rate 76, T wave inversions [address] segment depression 2, 3, aVF No STEMI Critical Care Note - Critical Care Note Total time excluding time spent on procedures (mins): 20 Discharge - Discharge Clinical Impression: Acute coronary syndrome Condition: Stable Disposition: [facility] [place] Referrals: LYDIA NICHOLE MD [Primary Care Provider] - Follow up as needed
--- NOTE | 2019-11-13 10:40 | EKG REPORT ---
SEVERITY:- ABNORMAL ECG - SINUS RHYTHM ABNORMAL T, CONSIDER ISCHEMIA, ANT-LAT LEADS, NEW COMPARED WITH 08/02/17 EKG. : Confirmed by: Serge Keith MD 13-Nov-2019 10:40:04
[2019-11-13 10:55] LABS: APPEARANCE,URINE CLEAR; BILIRUBIN,URINE NEGATIVE (NEGATIVE); COLOR,URINE YELLOW; GLUCOSE, URINE NEGATIVE (NEGATIVE); KETONES,URINE NEGATIVE (NEGATIVE); LEUKOCYTE ESTERASE,URINE NEGATIVE (NEGATIVE); NITRITE,URINE NEGATIVE (NEGATIVE); PROTEIN,URINE NEGATIVE (NEGATIVE); UROBILINOGEN,URINE NEGATIVE mg/dL (<2.0)
[2019-11-13 11:05] LABS: ABSOLUTE EOSINOPHILS # (AUTO) 0.1 10^3/uL (0.0-0.6); ABSOLUTE LYMPHOCYTES (AUTO) 1.3 10^3/uL (0.5-4.7); ABSOLUTE MONOCYTES (AUTO) 0.6 10^3/uL (0.1-1.4); ABSOLUTE NEUT (AUTO) 4.2 10^3/uL (1.7-8.2); BASOPHILS % (AUTO) 0.7 % (0-2); EOSINOPHILS % (AUTO) 1.5 % (0-6); HEMATOCRIT 42.4 % (36.0-47.0); HEMOGLOBIN 14.9 g/dL (12.0-15.5); LYMPHOCYTES % (AUTO) 20.3 % (13-45); MEAN CORPUSCULAR HEMOGLOBIN 31.7 pg (27.0-33.4); MEAN CORPUSCULAR HGB CONC 35.1 g/dL (32.0-36.0); MEAN CORPUSCULAR VOLUME 90 fl (80-97); MONOCYTES % (AUTO) 9.5 % (3-13); PLATELET COUNT 167 10^3/uL (150-450); RED CELL DISTRIBUTION WIDTH 13.6 % (11.5-14.0); TOTAL CELLS COUNTED % (AUTO) 100 %; WHITE BLOOD COUNT 6.2 10^3/uL (4.0-10.5)
[2019-11-13 11:19] LABS: ALBUMIN 4.8 g/dL (3.5-5.0); ALKALINE PHOSPHATASE 61 U/L (38-126); ANION GAP 9 (5-19); ASPARTATE AMINO TRANSFERASE 26 U/L (14-36); BILIRUBIN,TOTAL 0.7 mg/dL (0.2-1.3); BLOOD UREA NITROGEN 11 mg/dL (7-20); CALCIUM 10.1 mg/dL (8.4-10.2); CARBON DIOXIDE 26 mmol/L (22-30); CHLORIDE 103 mmol/L (98-107); GLUCOSE 89 mg/dL (75-110); POTASSIUM 4.2 mmol/L (3.6-5.0)
[2019-11-13 11:30] LABS: NT PRO BNP 463 pg/mL (<125)
[2019-11-13 11:31] LABS: TROPONIN I < 0.012 ng/mL
[2019-11-13] MEDS ORDERED: NITROGLYCERIN/D5W 50 MG/250 ML RTUINJ IV PRN (11:32)
[2019-11-13] MEDS ORDERED: HEPARIN SODIUM,PORCINE/D5W 25,000 UNIT/250 ML RTUINJ IV PRN (11:36)
[2019-11-13 11:59] LABS: INTERNATIONAL RATION (INR) 0.95; PROTHROMBIN TIME 12.9 SEC (11.4-15.4)
[2019-11-13 12:00] LABS: PARTIAL THROMBOPLASTIN TIME 31.5 SEC (23.5-35.8)
[2019-11-13] MEDS ORDERED: ACETAMINOPHEN 325 MG TABLET PO ONE (13:03)
[2019-11-13] MEDS ORDERED: ONDANSETRON 4 MG TAB.RAPDIS PO ONE (14:01)
[2019-11-13] MEDS ORDERED: OXYCODONE HCL IR 5 MG TABLET PO ONE (14:01)
--- NOTE | 2019-11-13 14:02 | ER Document Report ---
Doctor's Note Notes: 11/13/19 14:00 In to reassess patient. She reports that her chest pain is better while on nitro. However her headache did not have any response to Tylenol, she is also feeling some nausea. Will try additional oral pain medication along with Zofran. Awaiting transfer.
--- NOTE | 2019-11-13 15:04 | ER Document Report ---
Doctor's Note Notes: 11/13/19 15:03 Medical transport has arrived for patient. Patient seen and reevaluated. She is doing well, headache is better. She is in stable condition.
[2019-11-13 15:09] VITALS: BP 113/78
== END 2019-11-13 15:05 | disposition short-term general hospital (02) ==
LOC: ER 08:28
DX: I24.9 Acute ischemic heart disease, unspecified (principal); R51 Headache; R11.0 Nausea; R07.89 Other chest pain; R06.02 Shortness of breath; F32.9 Major depressive disorder, single episode, unspecified; Z79.899 Other long term (current) drug therapy; Z85.3 Personal history of malignant neoplasm of breast; Z88.6 Allergy status to analgesic agent; Z88.5 Allergy status to narcotic agent; Z82.49 Family history of ischemic heart disease and other diseases of the circulatory system
CPT/HCPCS: 93005; 99285; 96365; 96366; 96368; 36415; 85025; 85610; 85730; 80053; 81001; 84484; 83880; 71045; 93010; J1644; S0119; J3490